=== PATIENT | female | born 1945 | race Caucasian/White ===

== ENCOUNTER 2018-11-10 09:53 | Day surgery (SDC) | payer OTHER, BC ==
--- OUTSIDE RECORDS SUMMARY | 2018-11-10 09:56 | XMS REPORT ---
:1945 [facility] Address [address] [place] [address] Dr. Allen [address] [place] [id number] Care Team Providers Name Role Phone Unavailable Unavailable Unavailable Problems This patient has no known problems. Allergies, Adverse Reactions, Alerts This patient has no known allergies or adverse reactions. Medications This patient has no known medications.
--- OUTSIDE RECORDS SUMMARY | 2018-11-10 09:56 | XMS REPORT | Continuity of Care Document ---
:1945 Author Organization [facility] Information [place] Care Team Providers Name Role Phone [facility] Unavailable Unavailable Problems Problem Status Onset Classification Date Comments Source Date Reported 20094,RIGHT KNEE Active 09/16/19 MENISCUS TEAR 14 [facility] 48099,RIGHT KNEE Active 09/16/19 MENISCUS TEAR 14 [facility] [place] 719.46 Active 09/13/19 14 [facility] OSTEOARTHRITIS Active 04/27/19 RIGHT KNEE PAIN 01 [facility] Seizure Resolved 04/27/18 Problem 11/06/2018 [facility] 80 [facility] Anemia Resolved Problem 11/06/2018 [facility] Neuro 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 [facility] Carpal tunnel Active Problem 11/06/2018 [facility] syndrome Neuro Diverticulitis Active Problem 11/06/2018 [facility] Dystonia Active Problem 11/06/2018 [facility] Neuro Fibromyalgia Active Problem 11/06/2018 [facility] Neuro GERD (Confirmed) Active Problem 11/06/2018 [facility] Neuro Hyperlipidemia Resolved Problem 11/06/2018 [facility] Neuro Knee pain Active Problem 11/06/2018 [facility] 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 Neuro Neck pain Active Problem 11/06/2018 [facility] Neuropathy Active Problem 11/06/2018 [facility] Osteoporosis Active Problem 11/06/2018 [facility] Neuro Pneumonia Resolved Problem 11/06/2018 [facility] Neuro Rhinitis Active Problem 11/06/2018 [facility] Neuro Scoliosis Active Problem 11/06/2018 [facility] Neuro 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 Neuro region JOINT PAIN-L/LEG Active [facility] OSTEOARTHRITIS OF Active KNEE, UNSPECIFIED [facility] PAIN IN RIGHT Active KNEE [facility] Medications Medication Details Route Status Patient Ordering Order Source Instructions Provider Date pregabalin 150 MG 150 mg=1 cap, Active 09/23/ [facility] Oral Capsule PO, TID, # 90 2019 Neuro [Lyrica] cap, 3 Refill(s), called to pharmacy pregabalin 150 MG 150 mg=1 cap, Inactive 09/23/ [facility] Oral Capsule PO, TID, X 30 2018 Neuro [Lyrica] day, # 90 cap, 3 Refill(s), given to patient Acetaminophen 325 1-2 tab, PO, Active MG / Hydrocodone Q4-6H, Pain, # 2014 [facility] Bitartrate 5 MG 30 tab, 0 City Oral Tablet [[place] Refill(s) 5/325] enalaprilat 0.625 mg, 0.5 Inactive mL, Route: IVP2013 [facility] Drug form: INJ, City Q5Min, Dosing Weight 50.455, kg, PRN Elevated BP, Start date: 10/11/13 13:33:00, Duration: 4 doses or times, Stop date: Limited # of timesNotes: (Same as: Vasotec-IV) Calcium Chloride 1,000 mL, Rate: Inactive 0.0014 MEQ/ML / 125 ml/hr, 2013 [facility] Potassium Chloride Infuse over: 8 City 0.004 MEQ/ML / hr, Route: IV, Sodium Chloride Dosing Weight 0.103 MEQ/ML / 50.455 kg, Sodium Lactate Total Volume: 0.028 MEQ/ML 1,000, Start Injectable date: 10/11/13 Solution 13:33:00, Duration: 30 day, Stop date: 11/10/13 13:32:00 Naloxone 0.04 mg, 0.1 Inactive mL, Route: IVP2013 [facility] Drug form: INJ, City Q2MIN, Dosing Weight 50.455, kg, PRN Narcotic Reversal, Start date: 10/11/13 13:33:00, Duration: 8 doses or times, Stop date: Limited # of timesNotes: Same as Narcan Flumazenil 0.2 mg, 2 mL, Inactive Route: IV2013 [facility] Drug form: INJ, City PRN, Dosing Weight 50.455, kg, PRN Benzodiazepine Reversal, Initial dose, Start date: 10/11/13 13:33:00, Duration: 30 day, Stop date: 11/10/13 13:32:00Notes: (Same as: Romazicon) Morphine 2 mg, 0.25 mL, Inactive Route: IVP2013 [facility] Drug form: INJ, City Q5Min, Dosing Weight 50.455, kg, PRN Pain Score 4-6, Start date: 10/11/13 13:33:00, Duration: 5 doses or times, Stop date: Limited # of timesNotes: (Same as: MORPhine Sulfate) Acetaminophen 1,000 mg, 100 Inactive mL, Route: 2013 [facility] IVPB, Drug City form: INJ, ONCE, Dosing Weight 50.455, kg, PRN Pain Score 1-3, Start date: 10/11/13 13:33:00, Duration: 1 doses or times, Stop date: Limited # of timesNotes: Infuse over 15 minutes Do not exceed 4gm/day of acetaminophen Ondansetron 4 mg, 2 mL, Inactive Route: IVP2013 [facility] Drug form: INJ, City ONCE, Dosing Weight 50.455, kg, PRN Nausea & Vomiting, Start date: 10/11/13 13:33:00Notes: (Same as: Zofran) Lidocaine 0.5 mL, Route: Inactive Hydrochloride 10 INTRADERM, 2013 [facility] MG/ML Injectable Dosing Weight City Solution 50.455, kg, ONCALL, Start date: 10/11/13 12:00:00, Duration: 1 doses or times Cefazolin 2 gm, 100 mL, Inactive Route: IVPB, 2013 [facility] Drug form: INJ, City ONCE, Dosing Weight 50.455, kg, Start date: 10/11/13 11:11:00, Stop date: 10/11/13 11:11:00Notes: Same as: [facility] Calcium Chloride 1,000 mL, Rate: Inactive 0.0014 MEQ/ML / 25 ml/hr, 2013 [facility] Potassium Chloride Infuse over: 40 City 0.004 MEQ/ML / hr, Route: IV, Sodium Chloride Dosing Weight 0.103 MEQ/ML / 50.455 kg, Sodium Lactate Total Volume: 0.028 MEQ/ML 1,000, Start Injectable date: 10/11/13 Solution 11:10:00, Duration: 30 day, Stop date: 11/10/13 11:09:00 zoledronic acid 0 Refill(s) Active 0.05 MG/ML 2013 [facility] Injectable [facility] Solution [Reclast] Trazodone 50 mg=1 tab, Active 09/23/ Hydrochloride 50 PO, Bedtime, # 2013 [facility] MG Oral Tablet 270 tab, 0 City Refill(s) tramadol 50 mg=1 tab, Active 09/23/ MH hydrochloride 50 PO, Q6H, Pain, 2013 [facility] MG Oral Tablet # 40 tab, 0 City Refill(s) Omeprazole 20 MG 20 mg=1 cap, Active Enteric Coated PO, Daily, # 30 2013 [facility] Capsule [Prilosec] cap, 0 City Refill(s) Vitamin B-12 1000 0 Refill(s) Active mcg sublingual 2013 [facility] tablet [facility] Milnacipran 0 Refill(s) Active hydrochloride 50 2013 [facility] MG Oral Tablet City [Savella] Lutein 0 Refill(s) Active 2013 [facility] Simvastatin 20 MG 20 mg=1 tab, Active Oral Tablet PO, Bedtime, # 2013 [facility] [Zocor] 90 tab, 0 City Refill(s) docosahexaenoic 0 Refill(s) Active 09/23/ acid 200 MG / 2013 [facility] Eicosapentaenoic [facility] Acid 300 MG / Vitamin E 1 [facility] Oral Capsule pregabalin 150 MG 150 mg=1 cap, Active Oral Capsule PO, Daily, # 90 2013 [facility] [Lyrica] cap, 0 City Refill(s) One-A-Day Women 50 1 tab, PO, Active 09/23/ Plus oral tablet Daily, # 30 2013 [facility] tab, 0 City Refill(s) gabapentin 600 MG 600 mg=1 tab, Active 09/23/ MH Oral Tablet PO, QID, # 90 2013 [facility] tab, 0 City Refill(s) Bactrim DS 1 tab, PO, BID, Active # 6 tab, 0 2013 [facility] Refill(s) [facility] Doxycycline 100 MG 100 mg=1 cap, Active Oral Capsule PO, Daily, # 7 2013 [facility] cap, 0 City Refill(s) Docusate Sodium 100 mg=1 cap, Active 09/23/ MH 100 MG Oral PO, BID, 2013 [facility] Capsule [Colace] Constipation, # City 20 cap, 0 Refill(s) Calcium Citrate 0 Refill(s) Active 2013 [facility] ferrous sulfate 325 mg, PO, Active 325 MG Oral Tablet Daily, # 30 2013 [facility] [Feosol] tab, 0 City Refill(s) Allergies, Adverse Reactions, Alerts Substance Category Reaction Severity Reaction Status Date Comments Source type Reported No Known Assertion Drug [facility] Medication allergy Neuro Allergies Immunizations No Data Provided for This Section Results Order Name Results Value Reference Date Interpretation Comments Source Range HEMATOLOGY Hct 39.9 36.0 - 48.0 2013 [facility] HEMATOLOGY Hgb 13.4 12.0 - 16.0 2013 [facility] Pathology Reports No Data Provided for This Section Diagnostic Reports Report Value Date Source Knee 4+ views EXAMINATION: Right knee 4+ views unilateral 07/27/2015 [facility] unilateral DX HISTORY: Right knee pain; medial compartment joint space narrowing; knee effusion FINDINGS: 4 views of the right knee are performed and compared to 2013. There are no fractures. There is minimal medial compartment joint space narrowing, unchanged. The lateral and patellofemoral compartment joint spaces are normal. There is a trace knee effusion. IMPRESSION: 1. Unchanged minimal medial compartment joint space narrowing of the right knee with a trace knee effusion. Knee 3 views Exam: Right knee x-ray, 4 views 09/12/2013 [facility] Reason for Exam: Right knee pain Comparison Exam: None Discussion: No fractures or dislocations are seen of the right knee. The joint spaces are preserved. No intraosseous lesions. No radiopaque foreign bodies. Impression: 1. No acute bony abnormalities seen within the right knee . Consultation Notes No Data Provided for This Section Discharge Summaries No Data Provided for This Section History and Physicals No Data Provided for This Section Vital Signs Vital Sign Value Date Comments Source Weight 51.818 11/03/2018 [facility] Neuro BMI Calculated 22.31 11/03/2018 [facility] Neuro Heart Rate 71 11/03/2018 [facility] Neuro Respitory Rate 16 11/03/2018 [facility] Neuro Systolic (mm Hg) 102 11/03/2018 [facility] Neuro Diastolic (mm Hg) 64 11/03/2018 [facility] Height 152.4 cm 11/03/2018 [facility] Neuro Height 154.94 cm 09/23/2018 [facility] Neuro Weight 51.818 09/23/2018 [facility] Neuro BMI Calculated 21.59 09/23/2018 [facility] Neuro Systolic (mm Hg) 115 09/23/2018 [facility] Neuro Diastolic (mm Hg) 86 09/23/2018 [facility] Neuro Heart Rate 74 09/23/2018 [facility] Neuro Respitory Rate 16 09/23/2018 [facility] Neuro Heart Rate 70 10/11/2013 [facility] Systolic (mm Hg) 129 10/11/2013 [facility] Diastolic (mm Hg) 85 10/11/2013 [facility] Respitory Rate 15 10/11/2013 [facility] Diastolic (mm Hg) 79 10/11/2013 [facility] Systolic (mm Hg) 132 10/11/2013 [facility] Respitory Rate 13 10/11/2013 [facility] Systolic (mm Hg) 133 10/11/2013 [facility] Diastolic (mm Hg) 84 10/11/2013 [facility] Respitory Rate 14 10/11/2013 [facility] Heart Rate 74 10/11/2013 [facility] Temperature Oral (F) 98.5 F 10/11/2013 [facility] Weight 50.455 09/23/2013 [facility] BMI Calculated 21.02 09/23/2013 [facility] Height 154.94 cm 09/23/2013 [facility] Encounters Location Location Encounter Encounter Reason Attending ADM DC Status Source Details Type Number For Provider Date Date Visit [facility] [id number] [place] 09/12 09/13 [facility] /2013 [facility] OBS Day [id number] Dillon 10/11 10/11 [facility] Surgery [facility] /2013 [facility] Outpatient [id number] Dillon 07/26 07/27 [facility] /2015 [facility] [id number] LATANYA 07/[address] [facility] Out[facility] [id number] Latanya 07/27 [facility] Outpatient [id number] Latanya 09/23 [facility] Outpatient [id number] Latanya 09/23 09/24 [facility] Neurology [facility] /2018 [facility] [id number] Latanya 11/03 [facility] [facility] Outpatient [id number] Latanya 11/03 11/04 [facility] Neurology [facility] [place] [facility] [id number] Latanya 01/26 [facility] [place] Outpatient [id number] Latanya 02/02 [facility] [place] Procedures Procedure Code Date Perfomer Comments Source Cervical spinal [id number] 04/27/2008 [facility] Neuro fusion Cervical spinal [id number] 04/27/2008 [facility] Partial resection [id number] 04/27/2005 [facility] Neuro of colon Partial resection [id number] 04/27/2005 [facility] Adrenal gland [id number] 04/27/2004 [facility] Neuro operation Adrenal gland [id number] 04/27/2004 [facility] Hysterectomy [id number] 04/27/1978 [facility] Neuro Hysterectomy [id number] 04/27/1978 [facility] Appendectomy [id number] 04/27/1955 [facility] Neuro Appendectomy [id number] 04/27/1955 [facility] Colonoscopy [id number] [facility] Assessment and Plan No Data Provided for This Section Plan of Care No Data Provided for This Section Social History Social History Date Source Social History TypeResponse 07/14/2018 [facility] Neuro Employment/School 1, 2 Alcohol Current, Frequency: 1-2 times per month. Smoking Status Unknown if ever smoked; Exposure to Tobacco Smoke None; Cigarette Smoking Last 365 Days No; Reg Smoking Cessation Counseling No entered on: 11/03/18 1[employer] Son- Pedro Chavez2Can release medical information to Marcos Chavez- Son, Yarelis Araujo-Daughter, DR. Pillai- PCP and Dr. Cheney- other Neurologist Social History TypeResponse 09/23/2013 [facility] Alcohol Current, Frequency: 1-2 times per month. Smoking Status Unknown if ever smoked; Exposure to Tobacco Smoke None; Cigarette Smoking Last 365 Days No; Reg Smoking Cessation Counseling No Family History No Data Provided for This Section Advance Directives No Data Provided for This Section Functional Status No Data Provided for This Section
[2018-11-10] MEDS ORDERED: Zoledronic Acid/Mannitol/Water 5 MG/100 ML INFUS.BOT IV ONE (10:30)
== END 2018-11-10 11:15 | disposition home or self-care (01) ==
LOC: DS 09:53
PROVIDERS: ATTEND Internal Medicine
DX: M81.0 Age-related osteoporosis without current pathological fracture (principal); R13.10 Dysphagia, unspecified; E86.0 Dehydration
CPT/HCPCS: 96365; J3489

== ENCOUNTER 2019-11-14 10:54 | Day surgery (SDC) | payer OTHER, BC ==
[2019-11-14] MEDS ORDERED: Zoledronic Acid/Mannitol/Water 5 MG/100 ML INFUS.BOT IV ONE (11:00)
[2019-11-14 13:43] VITALS: BP 120/74; TEMP 97.8; O2SAT 97
[2019-11-14 13:44] VITALS: BMI 22.4
--- OUTSIDE RECORDS SUMMARY | 2019-11-14 15:51 | XMS REPORT | Continuity of Care Document ---
:1945 Author Organization [facility] Information [place] Care Team Providers Name Role Phone [facility] [place] Unavailable Un available Problems Problem Status Onset Classification Date Comments Sourc e Date Reported [id number],RIGHT KNEE Active 09/16/19 MENISCUS TEAR 14 [facility] 76696,RIGHT KNEE Active 09/16/19 M[facility]ISCUS [facility]AR [facility]NEE [facility] Active 09/13/19 MH 14 [facility] OSTEOARTHRITIS Active 04/27/19 RIGHT KNEE PAIN 01 [facility]finding[facility] Resolved 04/27/18 Problem 11/14/2019 M ischer 80 Neuro,[facility] Anemia (disorder) Resolved Problem 11/14/2019 M isch Neuro 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 Neuro, MH (disorder) [facility] Carpal tunnel Active Problem 11/14/2019 Misch er syndrome (disorder) Neuro Diverticulitis Active Problem 11/14/2019 Misc her (disorder) Neuro,[facility] Dystonia (disorder) Active Problem 11/14/2019 [facility] Fibromyalgia Active Problem 11/14/2019 Mische r (disorder) Neuro Gastroesophageal Active Problem 11/14/2019 Mi susan reflux disease Neuro (disorder) Hyperlipidemia Resolved Problem 11/14/2019 Misc her (disorder) Neuro Knee pain (finding) Active Problem 11/14/2019 [facility] 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 N euro (disorder) Neck pain (finding) Active Problem 11/14/2019 [facility] Neuropathy Active Problem 11/14/2019 [facility] (disorder) Neuro,[facility] Osteoporosis Active Problem 11/14/2019 Mische r (disorder) Neuro Pneumonia Resolved Problem 11/14/2019 [facility] (disorder) Neuro Rhinitis (disorder) Active Problem 11/14/2019 [facility] Scoliosis deformity Active Problem 11/14/2019 [facility] of spine (disorder) Neuro Spinal stenosis in Active Problem 11/14/2019 [facility] cervical region Neur o (disorder) JOINT PAIN-L/LEG Active [facility] OSTEOARTHRITIS OF Active KNEE, UNSPECIFIED [facility] PAIN IN RIGHT KNEE Active M H [facility] Medications Medication Details Route Status Patient Ordering Order Source Instructions Provider Date baclofen 10 mg 10 mg = 1 tab, Active 11/10/ Mi susan oral tablet PO, BID, # 180 2020 Neuro tab, 1 Refill(s), Pharmacy: [facility], 152.4, cm, 07/13/19 10:33:00 CDT, Height, 50.909, kg, 07/13/19 10:33:00 CDT, Weight baclofen 10 mg 10 mg = 1 tab, Inactive 11/10/ M ischer oral tablet PO, BID, X 30 2020 Neuro day, # 60 tab, 3 Refill(s), Pharmacy: [facility], 152.4, cm, 07/13/19 10:33:00 CDT, Height, 50.909, kg, 07/13/19 10:33:00 CDT, Weight Milnacipran 50 mg = 1 tab, Active 11/10/ Misch er hydrochloride 50 PO, BID, # 180 2020 Neuro MG Oral Tablet tab, 1 [Savella] Refill(s), Pharmacy: [facility], 152.4, cm, 07/13/19 10:33:00 CDT, Height, 50.909, kg, 07/13/19 10:33:00 CDT, Weight pregabalin 150 MG 150 mg = 1 cap, Active 11/10/ [facility] Oral Capsule PO, TID, # 270 2020 Neur o [Lyrica] cap, 1 Refill(s), [place], [facility]acy: [facility], 152.4, cm, 07/13/19 10:33:00 CDT, Height, 50.909, kg, 07/13/19 10:33:00 CDT, Weight pregabalin 150 MG 150 mg = 1 cap, Active 07/12/ [facility] Oral Capsule PO, TID, # 270 2020 Neur o [Lyrica] cap, 1 Refill(s), [place], Pharmacy: [facility] baclofen 10 mg 10 mg = 1 tab, Active Mi susan oral tablet PO, BID, # 60 2020 Neuro tab, 3 Refill(s), Pharmacy: [facility] pregabalin 150 MG 150 mg = 1 cap, Active 04/13/ [facility] Oral Capsule PO, TID, # 270 2019 Neur o [Lyrica] cap, 0 Refill(s), [facility] Milnacipran 50 mg = 1 tab, Active 04/13/ Misch er hydrochloride 50 PO, BID, # 180 2019 Neuro MG Oral Tablet tab, 1 [Savella] Refill(s) pregabalin 150 MG 150 mg = 1 cap, Active 01/17/ [facility] Oral Capsule PO, TID, # 270 2019 Neur o [Lyrica] cap, 0 Refill(s), [facility] pregabalin 150 MG 150 mg = 1 cap, Inactive 01/17 / [facility] Oral Capsule PO, TID, X 30 2019 Neuro [Lyrica] day, # 90 cap, 0 Refill(s), [facility] Milnacipran 50 mg = 1 tab, Active 01/17/ Misch er hydrochloride 50 PO, BID, # 180 2019 Neuro MG Oral Tablet tab, 1 [Savella] Refill(s), Pharmacy: [facility] pregabalin 150 MG 150 mg = 1 cap, Inactive 01/17 / [facility] Oral Capsule PO, TID, # 90 2019 Neuro [Lyrica] cap, 0 Refill(s), given to patient pregabalin 150 MG 150 mg = 1 cap, Inactive 01/17 / [facility] Oral Capsule PO, TID, # 270 2019 Neur o [Lyrica] cap, 3 Refill(s), given to patient pregabalin 150 MG 150 mg = 1 cap, Inactive 01/17 / [facility] Oral Capsule PO, TID, X 30 2019 Neuro [Lyrica] day, # 90 cap, 0 Refill(s), given to patient pregabalin 150 MG 150 mg = 1 cap, Active 09/23/ [facility] Oral Capsule PO, TID, # 90 2019 Neuro [Lyrica] cap, 3 Refill(s), called to pharmacy pregabalin 150 MG 150 mg = 1 cap, Inactive 09/23 / [facility] Oral Capsule PO, TID, X 30 2019 Neuro [Lyrica] day, # 90 cap, 3 Refill(s), given to patient Acetaminophen 325 1-2 tab, PO, Active 06/ M H MG / Hydrocodone Q4-6H, Pain, # 2014 [facility] Bitartrate 5 MG 30 tab, 0 City Oral Tablet [[place] Refill(s) 5/325] enalaprilat Notes: (Same Inactive as: Vasotec-IV) 2013 [facility] Calcium Chloride 1,000 mL, Rate: Inactive 0.0014 MEQ/ML / 125 ml/hr, 2014 [facility] Potassium Chloride Infuse over: 8 City 0.004 MEQ/ML / hr, Route: IV, Sodium Chloride Dosing Weight 0.103 MEQ/ML / 50.455 kg, Sodium Lactate Total Volume: 0.028 MEQ/ML 1,000, Start Injectable date: 10/11/13 Solution 13:33:00, Duration: 30 day, Stop date: 11/10/13 13:32:00 Naloxone Notes: Same as Inactive Narcan 2013 [facility] Flumazenil Notes: (Same Inactive as: Romazicon) 2013 [facility] Morphine Notes: (Same Inactive as: MORPhine 2014 [facility] Sulfate) [facility] Acetaminophen Notes: Infuse Inactive over 15 minutes 2014 [facility] Do not exceed City 4gm/day of acetaminophen Ondansetron Notes: (Same Inactive as: Zofran) 2013 [facility] Lidocaine 0.5 mL, Route: Inactive Hydrochloride 10 INTRADERM, 2014 [facility] rial MG/ML Injectable Dosing Weight C ity Solution 50.455, kg, ONCALL, Start date: 10/11/13 12:00:00, Duration: 1 doses or times Cefazolin Notes: Same as: Inactive Ancef 2013 [facility] Calcium Chloride 1,000 mL, Rate: Inactive 0.0014 MEQ/ML / 25 ml/hr, 2014 [facility] Potassium Chloride Infuse over: 40 City 0.004 MEQ/ML / hr, Route: IV, Sodium Chloride Dosing Weight 0.103 MEQ/ML / 50.455 kg, Sodium Lactate Total Volume: 0.028 MEQ/ML 1,000, Start Injectable date: 10/11/13 Solution 11:10:00, Duration: 30 day, Stop date: 11/10/13 11:09:00 zoledronic acid 0 Refill(s) Active 05/30/ MH 0.05 MG/ML 2013 [facility] Injectable City Solution [Reclast] Trazodone 50 mg = 1 tab, Active Hydrochloride 50 PO, Bedtime, # 2013 [facility] MG Oral Tablet 270 tab, 0 City Refill(s) tramadol 50 mg = 1 tab, Active hydrochloride 50 PO, Q6H, Pain, 2013 [facility] MG Oral Tablet # 40 tab, 0 City Refill(s) Omeprazole 20 MG 20 mg = 1 cap, Active Enteric Coated PO, Daily, # 30 2013 [facility] Capsule [Prilosec] cap, 0 City Refill(s) Vitamin B-12 1000 0 Refill(s) Active mcg sublingual 2013 [facility] tablet [facility] Milnacipran 0 Refill(s) Active hydrochloride 50 2013 [facility] MG Oral Tablet City [Savella] Lutein 0 Refill(s) Active 2013 [facility] Simvastatin 20 MG 20 mg = 1 tab, Active Oral Tablet PO, Bedtime, # 2014 [facility] [Zocor] 90 tab, 0 City Refill(s) docosahexaenoic 0 Refill(s) Active acid 200 MG / 2013 [facility] Eicosapentaenoic City Acid 300 MG / Vitamin E 1 UNT Oral Capsule pregabalin 150 MG 150 mg = 1 cap, Active Oral Capsule PO, Daily, # 90 2013 [facility] [Lyrica] cap, 0 City Refill(s) One-A-Day Women 50 1 tab, PO, Active Plus oral tablet Daily, # 30 2013 Mem orial tab, 0 City Refill(s) gabapentin 600 MG 600 mg = 1 tab, Active Oral Tablet PO, QID, # 90 2013 [facility] al tab, 0 City Refill(s) Bactrim DS 1 tab, PO, BID, Active # 6 tab, 0 2013 [facility] Refill(s) [facility] Doxycycline 100 MG 100 mg = 1 cap, Active 09/23 Oral Capsule PO, Daily, # 7 2013 [facility] rial cap, 0 City Refill(s) Docusate Sodium 100 mg = 1 cap, Active MH 100 MG Oral PO, BID, 2013 [facility] Capsule [Colace] Constipation, # City 20 cap, 0 Refill(s) Calcium Citrate 0 Refill(s) Active 2013 [facility] ferrous sulfate 325 mg, PO, Active 325 MG Oral Tablet Daily, # 30 2013 [facility] [Feosol] tab, 0 City Refill(s) Allergies, Adverse Reactions, Alerts Substance Category Reaction Severity Reaction Status Date Comments S ource type Reported No Known Assertion Drug Misch er Medication allergy Neuro Allergies Immunizations No Data Provided for This Section Results Order Name Results Value Reference Date Interpretation Comments Theresa rce Range HEMATOLOGY Hct 39.9 36.0 - 48.0 2013 [facility] HEMATOLOGY Hgb 13.4 12.0 - 16.0 2013 [facility] Pathology Reports No Data Provided for This Section Diagnostic Reports Report Value Date Source Knee 4+ views EXAMINATION: Right knee 4+ views unilateral 04/2015 [facility] unilateral DX HISTORY: Right knee pain; me dial compartment joint space narrowing; knee effusion FINDINGS: 4 views of the right knee are performe d and compared to 09/12/2013. There are no fractures. Ther e is minimal medial compartment joint space narrowing, unchanged. The lateral and patellofemoral compartment joint spaces are normal. There is a trace knee effusion. IMPRESSION: 1. Unchanged minimal medial compartment joint space narrowing of the right knee with a trace knee effusion. Knee 3 views Exam: Right knee x-ray, 4 views 09/12/2013 [facility] Reason for Exam: Right knee pain Comparison [...] Signs Vital Sign Value Date Comments Source Systolic (mm Hg) 126 07/13/2019 [facility] Love ro Diastolic (mm Hg) 83 07/13/2019 [facility] Ne uro Heart Rate 68 07/13/2019 [facility] Neuro Respitory Rate 16 07/13/2019 [facility] Neuro Height 152.4 cm 07/13/2019 [facility] Neuro Weight 50.909 07/13/2019 [facility] BMI Calculated 21.92 07/13/2019 [facility] Systolic (mm Hg) 116 04/13/2019 [facility] Love ro Diastolic (mm Hg) 75 04/13/2019 [facility] Ne uro Heart Rate 66 04/13/2019 [facility] Respitory Rate 16 04/13/2019 [facility] Height 152.4 cm 04/13/2019 [facility] Weight 51.364 04/13/2019 [facility] BMI Calculated 22.12 04/13/2019 [facility] Systolic (mm Hg) 108 01/17/2019 [facility] Love ro Diastolic (mm Hg) 78 01/17/2019 [facility] Ne uro Heart Rate 70 [facility] 16 01/17/2019 [facility] Height 154.94 cm 01/17/2019 [facility] Weight 51.364 01/17/2019 [facility] BMI Calculated 21.4 01/17/2019 [facility] Weight 51.818 11/03/2018 [facility] BMI Calculated 22.31 11/03/2018 [facility] Heart Rate 71 11/03/2018 [facility] Respitory Rate 16 11/03/2018 [facility] Systolic (mm Hg) 102 11/03/2018 [facility] Love ro Diastolic (mm Hg) 64 11/03/2018 [facility] Ne uro Height 152.4 cm 11/03/2018 [facility] Height 154.94 cm 09/23/2018 [facility] Weight 51.818 09/23/2018 [facility] BMI Calculated 21.59 09/23/2018 [facility] Systolic (mm Hg) 115 09/23/2018 [facility] [place] Diastolic (mm Hg) 86 09/23/2018 [facility] Ne uro Heart Rate 74 09/23/2018 [facility] Neuro Respitory Rate 16 09/23/2018 [facility] Heart Rate 70 10/11/2013 [facility] Cit y Systolic (mm Hg) 129 10/11/2013 [facility] City Diastolic (mm Hg) 85 10/11/2013 [facility] City Respitory Rate 15 10/11/2013 [facility] C ity Diastolic (mm Hg) 79 10/11/2013 [facility] l [facility] Systolic (mm Hg) 132 10/11/2013 [facility] City Respitory Rate 13 10/11/2013 [facility] C ity Systolic (mm Hg) 133 10/11/2013 [facility] Diastolic (mm Hg) 84 10/11/2013 [facility] [place] [facility] [place] Respitory Rate 14 10/11/2013 Diana parra Heart Rate 74 10/11/2013 [facility] Cit y Temperature Oral (F) 98.5 F 10/11/2013 [facility] [place] Weight 50.455 09/23/2013 [facility] Cit y BMI Calculated 21.02 09/23/2013 Diana parra Height 154.94 cm 09/23/2013 [facility] Cit y Encounters Location Location Encounter Encounter Reason Attending ADM DC Stat us Source Details Type Number For Provider Date Date Visit [facility] [id number] [facility]2013 [facility] OBS Day [id number] Dillon 10/11 10/11 [facility] [id number] Dillon 07/26 07/27 [facility] /2015 [facility] Outpatient [id number] LATANYA 07/14 [facility] [place] Outpatient [id number] Latanya 07/27 [facility] [place] Outpatient [id number] Latanya 09/23 [facility] [place] MNA Outpatient [id number] Latanya 09/23 09/24 [facility] Neurology [facility] Neuro [place] Outpatient [id number] Latanya 11/03 [facility] [place] MNA Outpatient [id number] Latanya 11/03 11/04 [facility] Neurology Kre Neuro [place] Outpatient [id number] Latanya 01/05 [facility] [place] MNA Ambulatory [id number] Latanya 01/05 01[facility]05 [facility] [place] Out[facility] [id number] Latanya 01/12 [facility] [place] MNA Ambulatory [id number] Latanya 01/12 01/12 [facility] Neurology Pre-Reg Kre Neuro [place] Outpatient [id number] Latanya 01/17 [facility] [place] MNA Outpatient [id number] Latanya 01/17 01/18 [facility] [place] [facility] [id number] Latanya 01/20 [facility] [place] [facility] [id number] Latanya 01/20 01/20 [facility] Pre[facility] [place] Neuro [place] Outpatient [id number] Latanya 01/26 [facility] [place] [facility] Ambulatory [id number] Latanya 01/26 01/26 [facility] Pre[facility] [place] Neuro [place] Outpatient [id number] Latanya 02/02 [facility] [place] MNA Ambulatory [id number] Latanya 02/02 02/02 [facility] [place] Neuro [place] Outpatient [id number] Latanya 04/13 Active [facility] [place] MNA Outpatient [id number] Latanya 04/13 04/14 [facility] Neuro [place] Outpatient [id number] Latanya 07/12 Active [facility] Kre [place] MNA Outpatient [id number] Latanya 07/12 07/13 [facility] Neuro [place] Outpatient [id number] Latanya 11/10 Active [facility] Kre [place] Outpatient [id number] Latanya 11/10 Active [facility] Kre [place] MNA Ambulatory [id number] Latanya 11/10 11/10 [facility] Neuro [place] MNA Outpatient [id number] Latanya 11/10 11/11 [facility] [place] /2019 Neuro [place] Outpatient [id number] Latanya 03/14 Active [facility] [place] Procedures Procedure Code Date Perfomer Comments Source Cervical spinal [id number] 04/27/2008 [facility] fusion Neuro,[facility] Partial resection [id number] 04/27/2005 [facility] of colon Neuro,[facility] Adrenal gland [id number] 04/27/2004 [facility] operation Neuro,[facility] Hysterectomy [id number] 04/27/1978 [facility] Neuro,[facility] Appendectomy [id number] 04/27/1955 [facility] Neuro,[facility] Colonoscopy [id number] [facility] Neuro Assessment and Plan No Data Provided for This Section Plan of Care No Data Provided for This Section Social History Social History Date Source Social History TypeResponse 09/23/2013 [facility] Alcohol Current, Frequency: 1-2 times per month. 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 Pillai- PCP and Dr. Cheney- other Neurologist Social History TypeResponse 09/23/2013 [facility] Alcohol Current, Frequency: 1-2 times per month. 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
--- OUTSIDE RECORDS SUMMARY | 2019-11-14 15:51 | XMS REPORT | Summary of Care ---
:1945 Author Organization [facility] Neurology [place] Address [address] [place] [address]- Encounter HQ Connerr_gaviota(FIN) [id number] Date(s): 11/11/19 - 11/11/19 [facility] [address] [place] [address]- [phone] Discharge Disposition: Home or Self Care Attending Physician: Jung Ritchie MD Referring Physician: Jung Ritchie MD Vital Signs No data available for this section Problem List Condition Effective Dates Status Health Status Informant Anemia(Confirmed) Resolved Benign tumor of adrenal Resolved gland(Confirmed) Carpal tunnel syndrome(Confirmed) Active Diverticulitis(Confirmed) Active Dystonia(Confirmed) Active Fibromyalgia(Confirmed) Active GERD (gastroesophageal reflux Active disease)(Confirmed) Hyperlipidemia(Confirmed) Resolved Knee pain(Confirmed) Active Cerebellar atrophy(Confirmed) Active Neck pain(Confirmed) Active Neuropathy(Confirmed) Active Osteoporosis(Confirmed) Active Pneumonia(Confirmed) Resolved Rhinitis(Confirmed) Active Scoliosis(Confirmed) Active Seizure(Confirmed) < 1980 Resolved Stenosis of cervical spine Active region(Confirmed) Allergies, Adverse Reactions, Alerts No Known Medication Allergies Medications baclofen 10 mg oral tablet 10 mg = 1 tab, PO, BID, X 30 day, # 60 tab, 3 Refill(s), Pharmacy: [facility], 152.4, cm,07/13/19 10:33:00 CDT, Height, 50.909, kg, 07/13/19 10:33:00 CDT, Weight Start Date: 11/11/19 Stop Date: 11/11/19 Status: Completedbaclofen 10 mg oral tablet 10 mg = 1 tab, PO, BID, # 180 tab, 1 Refill(s), Pharmacy: [facility], 152.4, cm, 07/12/2009:33:00 CDT, Height, 50.909, kg, 07/13/19 10:33:00 CDT, Weight Start Date: 11/11/19 Stop Date: 05/09/20 Status: OrderedLyrica 150 mg oral capsule 150 mg = 1 cap, PO, TID, # 270 cap, 1 Refill(s), [place], Pharmacy: [facility], 152.4, cm, 07/13/19 10:33:00 CDT, Height, 50.909, kg, 07/13/19 10:33:00 CDT, Weight Start Date: 11/11/19 Stop Date: 05/09/20 Status: OrderedSavella 50 mg oral tablet 50 mg = 1 tab, PO, BID, # 180 tab, 1 Refill(s), [facility]acy: [facility], 152.4, cm, 07/13/19 10:33:00 CDT, Height, 50.909, kg, 07/13/19 10:33:00 CDT, Weight Start Date: 11/11/19 Stop Date: 05/09/20 Status: Ordered Results No data available for this section Immunizations No data available for this section Procedures Procedure Date Related Diagnosis Body Site Status Cervical spinal fusion 2008 Compl eted Partial resection of colon 2005 C ompleted Adrenal gland operation 2004 Comp leted Hysterectomy 1978 Completed Appendectomy 1955 Completed Colonoscopy Completed Social History Social History Type Response Alcohol Current, Frequency: 1-2 time s per month. Employment/School 1, 2 Smoking Status Unknown if ever smoked; Expo sure to Tobacco Smoke None; Cigarette Smoking Last 365 Days No; Reg Smoking Cessation Counseling No entered on: 11/11/19 1Power of Paper Handler Jamie Chavez2Can release medical information to Marcos Chavez- Son, Yarelis Araujo-Daughter, DR. Pillai- PCP & Dr. Cheney- other Neurologist Assessment and Plan No data available for this section
--- OUTSIDE RECORDS SUMMARY | 2019-11-14 15:51 | XMS REPORT | Summary of Care ---
:1945 Author Organization [facility] Neurology [place] Address [address] [place] [address]- Encounter HQ Connerr_gaviota(FIN) [id number] Date(s): 11/11/19 - 11/11/19 [facility] [address] [place] [address]- [phone] Attending Physician: Jung Ritchie MD Referring Physician: [...] Reactions, Alerts No Known Medication Allergies Medications No data available for this section Results No data available for this section [...] Counseling No entered on: 11/11/19 1Power of Advisory Intern Son- Pedro Chavez2Can release medical information to Marcosstephanie Chavez- Son, Yarelis Araujo-Daughter, DR. Pillai- PCP & Dr. Cheney- other Neurologist Assessment and Plan No data available for this section
--- OUTSIDE RECORDS SUMMARY | 2019-11-14 15:52 | XMS REPORT | Continuity of Care Document ---
:1945 Author Organization [facility] t Address [address] [place] [address] Care Team Providers Name Role Phone Troy Ritchie Attending Clinician Janie Rose Attending Clinician Janie Rose Admitting Clinician Problems Condition Condition Condition Status Onset Resolution Last Treating Co mments Source Name Details Category Date Date Treatment Clinician Date [id number],RIG Diagnosis Active 2013-09-23 Memoria T KNEE - 10:33:00 l MENISCUS 00:00: Talmo TEAR [id number],RIGH 00 T KNEE MENISCUS TEAR Active 09/15/2013 [facility] [id number],RIGH Diagnosis Active 2013-10-11 Memoria T KNEE - 07:31:00 l MENISCUS 00:00: Talmo TEAR KNEE [id number],RIGH 00 ARTH T KNEE MENISCUS TEAR KNEE ARTH Active 09/15/2013 [facility] 719.46 Diagnosis Active 2013-09-13 Mem oria - 13:19:00 l 719.46 00:00: Manpreet 00 Active 09/12/2013 [facility] OSTEOARTHR Diagnosis Active 2015-07-27 Memoria ITIS RIGHT - 11:27:00 l KNEE PAIN 00:00: Manpreet OSTEOARTHR 00 ITIS RIGHT KNEE PAIN Active 04/27/2000 [facility] Anemia Problem Resolve 2019-11-14 Tanmay kerrie (disorder) d 00:04:05 l Anemia Talmo (disorder) Resolved Problem 11/14/2019 [facility] 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) [facility] Hyperlipid Problem Resolve 2019-11-14 Memoria emia d 00:04:05 l (disorder) Gavino n Hyperlipid emia (disorder) Resolved Problem 11/14/2019 [facility] Pneumonia Problem Resolve 2019-11-14 M emoria (disorder) d 00:04:05 l Manpreet Pneumonia (disorder) Res[facility] Carpal Problem Active 2019-11-14 Memor ia tunnel 00:04:05 l syndrome Carpal Gavino n (disorder) tunnel syndrome (disorder) Active Problem [facility]/14/2019 [facility] Diverticul Problem Active 2019-11-14 M emoria itis 00:04:05 l (disorder) Gavino n Diverticul itis (disorder) Active Problem 11/14/2019 [facility] Dystonia Problem Active 2019-11-14 Mem oria (disorder) 00:04:05 l Dystonia Gavino n (disorder) Active Problem 11/14/2019 [facility] Fibromyalg Problem Active 2019-11-14 M emoria ia 00:04:05 l (disorder) Gavino n Fibromyalg ia (disorder) Active Problem 11/14/2019 [facility] Gastroesop Problem Active 2019-11-14 M emoria hageal 00:04:05 l reflux Manpreet disease Gastroesop (disorder) hageal reflux disease (disorder) Active Problem 11/14/2019 [facility] Knee pain Problem Active 2019-11-14 Me moria (finding) 00:04:05 l Knee Talmo pain (finding) Active Problem 11/14/2019 [facility] 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) Active Problem 11/14/2019 [facility] Neck pain Problem Active 2019-11-14 Me moria (finding) 00:04:05 l Neck Talmo pain (finding) Active Problem 11/14/2019 [facility] Neuropathy Problem Active 2019-11-14 M emoria (disorder) 00:04:05 l Talmo Neuropathy (disorder) Active Problem 11/14/2019 [facility] Osteoporos Problem Active 2019-11-14 M emoria is 00:04:05 l (disorder) Gavino n Osteoporos is (disorder) Active Problem 11/14/2019 [facility] Rhinitis Problem Active 2019-11-14 Mem oria (disorder) 00:04:05 l Rhinitis Gavino n (disorder) Active Problem 11/14/2019 [facility] Scoliosis Problem Active 2019-11-14 Me moria deformity 00:04:05 l of spine Manpreet (disorder) Scoliosis deformity of spine (disorder) Active Problem 11/14/2019 [facility] Spinal Problem Active 2019-11-14 Memor ia stenosis 00:04:05 l in Spinal Manpreet cervical stenosis region in (disorder) cervical region (disorder) Active Problem 11/14/2019 [facility] JOINT Diagnosis Active 2013-09-13 Mem oria PAIN-L/LEG 13:19:00 l JOINT Talmo PAIN-L/LEG Active [facility] OSTEOARTHR Diagnosis Active 2015-07-27 Memoria ITIS OF 11:27:00 l KNEE, Talmo UNSPECIFIE OSTEOARTHR D ITIS OF KNEE, UNSPECIFIE D Active [facility] PAIN IN Diagnosis Active 2015-07-27 Me moria RIGHT KNEE 11:27:00 l PAIN IN Talmo RIGHT KNEE Active [facility] History of Past Illness Condition Condition Condition Status Onset Resolution Last Treating Co mments Source Name Details Category Date Date Treatment Clinician Date Seizure Problem Resolve 1979-2019-11-14 2019-11-14 Memoria (finding) d - 00:04:05 00:04:05 l Seizure 00:00: Talmo (finding) 00 Resolved 04/27/1979 Problem 11/14/2019 [facility] Allergies, Adverse Reactions, Alerts Allergy Allergy Status Severity Reaction(s) Onset Inactive Treating Comm ents Source Name Type Date Date Clinician No Known No Known Active Memori a Medicati Medicati l on on Talmo Allergie Allergie s s Social History Social Habit Start Date Stop Date Quantity Comments Source Social History 2013-09-23 2013-09-23 [facility] karmen 15:57:59 15:57:59 Medications Ordered Filled Start Stop Current Ordering Indication Dosage Frequency Signature Comments Components Source Medication Medication Date Date Medication? Clinician (SIG) Name Name baclofen 10 Yes 10 mg = 1 M emoria mg oral 7-17 tab, PO, l tablet 23:32: BID, # 180 Ana nn 00 tab, 1 Refill(s), Pharmacy: [id number], 152.4, cm, 07/13/19 10:33:00 CDT, Height, 50.909, kg, 07/13/19 10:33:00 CDT, Weight baclofen 10 2019-0 No 10 mg = 1 M emoria mg oral 7-17 tab, PO, l tablet 16:58: BID, X 30 Gavino n 00 day, # 60 tab, 3 Refill(s), Pharmacy: [facility], 152.4, cm, 07/13/19 10:33:00 CDT, Height, 50.909, kg, 07/13/19 10:33:00 CDT, Weight Milnacipran 2020-0 Yes 50 mg = 1 M emoria hydrochlori 7-17 tab, PO, l de 50 MG 16:58: BID, # 180 Her willams Oral Tablet 00 tab, 1 [Savella] Refill(s), Pharmacy: [facility], 152.4, cm, 07/13/19 10:33:00 CDT, Height, 50.909, kg, 07/13/19 10:33:00 CDT, Weight pregabalin 2020-0 Yes 150 mg = 1 M emoria 150 MG Oral 7-17 cap, PO, l Capsule 16:58: TID, # 270 Herm aleksander [Lyrica] 00 cap, 1 Refill(s), EARL, Pharmacy: [facility], 152.4, cm, 07/13/19 10:33:00 CDT, Height, 50.909, kg, 07/13/19 10:33:00 CDT, Weight pregabalin 2020-0 Yes 150 mg = 1 M emoria 150 MG Oral 3-18 cap, PO, l Capsule 15:53: TID, # 270 Herm aleksander [Lyrica] 00 cap, 1 Refill(s), EAR[place], Pharmacy: [facility] baclofen 10 2020-0 Yes 10 mg = 1 M emoria mg oral 3-18 tab, PO, l tablet 15:53: BID, # 60 Gavino n 00 tab, 3 Refill(s), Pharmacy: [facility] pregabalin 2018-1 Yes 150 mg = 1 M emoria 150 MG Oral 2-18 cap, PO, l Capsule 16:09: TID, # 270 Herm aleksander [Lyrica] 33 cap, 0 Refill(s), [facility] Milnacipran 2019- Yes 50 mg = 1 M emoria hydrochlori 2-18 tab, PO, l de 50 MG 16:09: BID, # 180 Her willams Oral Tablet 29 tab, 1 [Savella] Refill(s) pregabalin 2019- Yes 150 mg = 1 M emoria 150 MG Oral 9-23 cap, PO, l Capsule 14:05: TID, # 270 Herm aleksander [Lyrica] 47 cap, 0 Refill(s), [facility] pregabalin 2018- No 150 mg = 1 M emoria 150 MG Oral 9-23 cap, PO, l Capsule 13:59: TID, X 30 Ana nn [Lyrica] 59 day, # 90 cap, 0 Refill(s), [facility] Milnacipran 2019- Yes 50 mg = 1 M emoria hydrochlori 9-23 tab, PO, l de 50 MG 13:59: BID, # 180 Her willams Oral Tablet 00 tab, 1 [Savella] Refill(s), Pharmacy: [facility] pregabalin 2019- No 150 mg = 1 M emoria 150 MG Oral 9-23 cap, PO, l Capsule 13:58: TID, # 90 Ana nn [Lyrica] 16 cap, 0 Refill(s), given to patient pregabalin 2019- No 150 mg = 1 M emoria 150 MG Oral 9-23 cap, PO, l Capsule 13:57: TID, # 270 Herm aleksander [Lyrica] 46 cap, 3 Refill(s), given to patient pregabalin 2019-0 No 150 mg = 1 M emoria 150 MG Oral 9-23 cap, PO, l Capsule 13:56: TID, X 30 Ana nn [Lyrica] 21 day, # 90 cap, 0 Refill(s), given to patient pregabalin 2019-0 Yes 150 mg = 1 M emoria 150 MG Oral 5-30 cap, PO, l Capsule 22:15: TID, # 90 Ana nn [Lyrica] 16 cap, 3 Refill(s), called to pharmacy pregabalin 2019-0 No 150 mg = 1 M emoria 150 MG Oral 5-30 cap, PO, l Capsule 21:41: TID, X 30 Ana nn [Lyrica] 00 day, # 90 cap, 3 Refill(s), given to patient Acetaminoph Yes 1-2 tab, Me moria en 325 MG / 6-17 PO, Q4-6H, l Hydrocodone 18:37: Pain, # 30 Talmo Bitartrate 00 tab, 0 5 MG Oral Refill(s) Tablet [[place]oshen 5/325] enalaprilat No Notes: Tanmay kerrie 6-17 (Same as: l 18:33: Vasotec-IV Talmo ) Calcium No 1,000 mL, Memor ia Chloride - Rate: 125 l 0.0014 18:33: ml/hr, Manpreet MEQ/ML / 00 Infuse Potassium over: 8 Chloride hr, Route: 0.004 IV, Dosing MEQ/ML / Weight Sodium 50.455 kg, Chloride Total 0.103 Volume: MEQ/ML / 1,000, Sodium Start Lactate date: 0.028 10/11/13 MEQ/ML 13:33:00, Injectable Duration: Solution 30 day, Stop date: 11/10/13 13:32:00 Naloxone No Notes: Memoria 6-17 Same as l 18:33: Narcan Talmo Flumazenil No Notes: Memor ia 6-17 (Same as: l 18:33: Romazicon) Morphine No Notes: Memoria 6-17 (Same as: l 18:33: MORPhine Manpreet Sulfate) Acetaminoph No Notes: Tanmay kerrei en -17 Infuse l 18:33: over 15 Talmo 00 minutes Do not exceed 4gm/day of acetaminop hen Ondansetron No Notes: Tanmay kerrie 6-17 (Same as: l 18:33: Zofran) Manpreet Lidocaine No 0.5 mL, Memor ia Hydrochlori 10-11 Route: l de 10 MG/ML 17:00: INTRADERM, Manpreet Injectable 00 Dosing Solution Weight 50.455, kg, ONCALL, Start date: 10/11/13 12:00:00, Duration: 1 doses or times Cefazolin Yes Notes: Memori a 10-11 Same as: l 16:11: Ancef Manpreet Calcium No 1,000 mL, Memor ia Chloride 10-11 Rate: 25 l 0.0014 16:10: ml/hr, Talmo MEQ/ML / 00 Infuse Potassium over: 40 Chloride hr, Route: 0.004 IV, Dosing MEQ/ML / Weight Sodium 50.455 kg, Chloride Total 0.103 Volume: MEQ/ML / 1,000, Sodium Start Lactate date: 0.028 10/11/13 MEQ/ML 11:10:00, Injectable Duration: Solution 30 day, Stop date: 11/10/13 11:09:00 zoledronic Yes 0 Memoria acid 0.05 5-30 Refill(s) l MG/ML 16:03: Manpreet Injectable 00 Solution [Reclast] Trazodone Yes 50 mg = 1 Mem oria Hydrochlori 5-30 tab, PO, l de 50 MG 16:03: Bedtime, # Her willams Oral Tablet 00 270 tab, 0 Refill(s) tramadol Yes 50 mg = 1 Tanmay kerrie hydrochlori 5-30 tab, PO, l de 50 MG 16:03: Q6H, Pain, Her willams Oral Tablet 00 # 40 tab, 0 Refill(s) Omeprazole Yes 20 mg = 1 Me moria 20 MG 5-30 cap, PO, l Enteric 16:03: Daily, # Gavino n Coated 00 30 cap, 0 Capsule Refill(s) [Prilosec] Vitamin Yes 0 Memoria B-12 1000 5-30 Refill(s) l mcg 16:02: Manpreet sublingual 00 tablet Milnacipran Yes 0 Memori a hydrochlori 5-30 Refill(s) l de 50 MG 16:02: Talmo Oral Tablet 00 [Savella] Lutein Yes 0 Memoria 5-30 Refill(s) l 16:02: Talmo 00 Simvastatin Yes 20 mg = 1 M emoria 20 MG Oral 5-30 tab, PO, l Tablet 16:02: Bedtime, # Ana nn [Zocor] 00 90 tab, 0 Refill(s) docosahexae Yes 0 Memori a noic acid 5-30 Refill(s) l 200 MG / 16:02: Manpreet Eicosapenta 00 enoic Acid 300 MG / Vitamin E 1 UNT Oral Capsule pregabalin Yes 150 mg = 1 M emoria 150 MG Oral 5-30 cap, PO, l Capsule 16:01: Daily, # Gavino n [Lyrica] 00 90 cap, 0 Refill(s) One-A-Day Yes 1 tab, PO, Me moria Women 50 5-30 Daily, # l Plus oral 16:01: 30 tab, 0 Her willams tablet 00 Refill(s) gabapentin Yes 600 mg = 1 M emoria 600 MG Oral 5-30 tab, PO, l Tablet 16:01: QID, # 90 Gavino n 00 tab, 0 Refill(s) Bactrim DS Yes 1 tab, PO, M emoria 5-30 BID, # 6 l 16:00: tab, 0 Manpreet 00 Refill(s) Doxycycline Yes 100 mg = 1 Memoria 100 MG Oral 5-30 cap, PO, l Capsule 16:00: Daily, # 7 Herm aleksander 00 cap, 0 Refill(s) Docusate Yes 100 mg = 1 Mem oria Sodium 100 5-30 cap, PO, l MG Oral 16:00: BID, Talmo Capsule 00 Constipati [Colace] on, # 20 cap, 0 Refill(s) Calcium Yes 0 Memoria Citrate 5-30 Refill(s) l 16:00: Manpreet 00 ferrous Yes 325 mg, Memoria sulfate 325 5-30 PO, Daily, l MG Oral 16:00: # 30 tab, Ana nn Tablet 00 0 [Feosol] Refill(s) Vital Signs Vital Name Observation Time Observation Value Comments Source Systolic (mm Hg) 2019-07-13 15:33:00 Tanmay riajanie Case Diastolic (mm Hg) 2019-07-13 15:33:00 Nahomy orial Talmo Heart Rate 2019-07-13 15:33:00 [facility] Respitory Rate 2019-07-13 15:33:00 Jeramy al Talmo Height 2019-07-13 15:33:00 152.4 cm [facility] Weight 2019-07-13 15:33:00 [facility]mo BMI Calculated 2019-07-13 15:33:00 Memori al Talmo Systolic (mm Hg) 2019-04-13 15:54:00 Tanmay rial Manpreet Diastolic (mm Hg) 2019-04-13 15:54:00 Mem orial Talmo Heart Rate 2019-04-13 15:54:00 [facility] Talmo Respitory Rate 2019-04-13 15:54:00 Memori al Talmo Height 2019-04-13 15:54:00 152.4 cm [facility] Manpreet Weight 2019-04-13 15:54:00 [facility] Talmo BMI Calculated 2019-04-13 15:54:00 Memori al Manpreet Systolic (mm Hg) 2019-01-17 13:42:00 Tanmay rial Manpreet Diastolic (mm Hg) 2019-01-17 13:42:00 Mem orial Manpreet Heart Rate 2019-01-17 13:42:00 [facility] Manpreet Respitory Rate 2019-01-17 13:42:00 Memori al Manpreet Height 2019-01-17 13:42:00 154.94 cm [facility] Talmo Weight 2019-01-17 13:42:00 [facility] Manpreet BMI Calculated 2019-01-17 13:42:00 Memori al Talmo Weight 2018-11-03 15:00:00 [facility] Talmo BMI Calculated 2018-11-03 15:00:00 Memori al Manpreet Heart Rate 2018-11-03 15:00:00 [facility] Manpreet Respitory Rate 2018-11-03 15:00:00 Memori al Manpreet Systolic (mm Hg) 2018-11-03 15:00:00 Tanmay rial Talmo Diastolic (mm Hg) 2018-11-03 15:00:00 Mem orial Talmo Height 2018-11-03 15:00:00 152.4 cm [facility] Manpreet Height 2018-09-23 20:46:00 154.94 cm [facility] Manpreet Weight 2018-09-23 20:46:00 [facility] Talmo BMI Calculated 2018-09-23 20:46:00 Memori al Manpreet Systolic (mm Hg) 2018-09-23 20:46:00 Tanmay rial Talmo Diastolic (mm Hg) 2018-09-23 20:46:00 Mem orial Manpreet Heart Rate 2018-09-23 20:46:00 [facility] Talmo Respitory Rate 2018-09-23 20:46:00 Memori al Manpreet Heart Rate 2013-10-11 19:45:00 [facility] Manpreet Systolic (mm Hg) 2013-10-11 19:45:00 Tanmay rial Talmo Diastolic (mm Hg) 2013-10-11 19:45:00 Mem orial Talmo Respitory Rate 2013-10-11 19:45:00 Memori al Talmo Diastolic (mm Hg) 2013-10-11 19:30:00 Mem orial Manpreet Systolic (mm Hg) 2013-10-11 19:30:00 Tanmay rial Manpreet Respitory Rate 2013-10-11 19:30:00 Memori al Talmo Systolic (mm Hg) 2013-10-11 19:15:00 Tanmay rial Talmo Diastolic (mm Hg) 2013-10-11 19:15:00 Mem orial Talmo Respitory Rate 2013-10-11 19:15:00 Memori al Manpreet Heart Rate 2013-10-11 16:09:00 [facility] Manpreet Temperature Oral (F) 2013-10-11 16:09:00 98.5 F [facility] Talmo Weight 2013-09-23 15:51:00 [facility] Talmo BMI Calculated 2013-09-23 15:51:00 Memori al Manpreet Height 2013-09-23 15:51:00 154.94 cm [facility] Manpreet Procedures Procedure Date / Time Performed Performing Clinician [facility] yulisa Cervical spinal fusion 2008-04-27 00:00:00 Edison metz Talmo Partial resection of 2005-04-27 00:00:00 [place] Case colon Adrenal gland operation 2004-04-27 00:00:00 Tanmay rial Talmo Hysterectomy 1978-04-27 00:00:00 [facility] willams Appendectomy 1955-04-27 00:00:00 [facility] Her willams Colonoscopy [facility] Manpreet Encounters Start End Encounter Admission Attending Care Care Encounter Source Date/Time Date/Time Type Type Clinicians Facility Department ID 2019-11-11 2019-11-11 Outpatient ANSLEY Ritchie [id number] 11:45:00 23:59:59 Jung 06 Troy 2019-11-11 2019-11-11 Outpatient ANSLEY Ritchie [id number] 11:45:00 11:45:00 Jung 05 Troy 2019-07-13 2019-07-13 Outpatient Erma, MHMISCHER MHMISCHER [id number] 10:15:00 23:59:59 Jung 04 Troy 2019-04-13 2019-04-13 Outpatient Erma, MHMISCHER MHMISCHER [id number] 09:45:00 23:59:59 Jung 03 Troy 2019-02-02 2019-02-02 Outpatient Erma, MHMISCHER MHMISCHER [id number] 15:00:00 15:00:00 Jung 97 Troy 2019-01-26 2019-01-26 Outpatient Erma, MHMISCHER MHMISCHER [id number] 15:00:00 15:00:00 Jung 98 Troy 2019-01-20 2019-01-20 Outpatient Erma, MHMISCHER MHMISCHER [id number] 15:45:00 15:45:00 Jung Troy 2019-01-17 2019-01-17 Outpatient Erma, MHMISCHER MHMISCHER [id number] 09:00:00 23:59:59 Jung 02 Troy 2019-01-12 2019-01-12 Outpatient Erma, MHMISCHER MHMISCHER [id number] 16:00:00 16:00:00 Jung 00 Troy 2019-01-05 2019-01-05 Outpatient Erma, MHMISCHER MHMISCHER [id number] 13:30:00 13:30:00 Jung 99 Troy 2018-11-03 2018-11-03 Outpatient Erma, MHMISCHER MHMISCHER [id number] 10:15:00 23:59:59 Jung 96 Troy 2018-09-23 2018-09-23 Outpatient Erma, MHMISCHER MHMISCHER [id number] 15:30:00 23:59:59 Jung 95 Troy 2015-07-27 2015-07-27 Outpatient Likover, [facility] [id number] 11:15:00 23:59:00 Dillon Janie 92 2013-10-11 2013-10-11 Outpatient Likover, [facility] [id number] 07:30:00 16:04:00 Dillon L 00 2013-09-12 2013-09-12 Outpatient Likover, [facility] [id number] 11:49:00 23:59:00 Dillon Gimenez 39 Results Test Description Test Time Test Comments Results Result Comments Source HEMATOLOGY 2013-09-23 39.9 Diana hendricks 16:30:21 HEMATOLOGY 2013-09-23 13.4 Diana hendricks 16:30:21
== END 2019-11-14 12:05 | disposition home or self-care (01) ==
LOC: DS 10:54
PROVIDERS: ATTEND Internal Medicine
DX: M81.0 Age-related osteoporosis without current pathological fracture (principal); R13.10 Dysphagia, unspecified
CPT/HCPCS: 96365; J3489

== ENCOUNTER 2020-01-16 02:58 | Emergency (ER) | payer OTHER, BC ==
--- OUTSIDE RECORDS SUMMARY | 2020-01-16 03:00 | XMS REPORT | Continuity of Care Document ---
:1945 Author Organization [facility] Information [place] Care Team Providers Name Role Phone [facility] Information [place] Unavailable Un available Problems Problem Status Onset Classification Date Comments Sourc e Date Reported [id number],RIGHT KNEE Active 09/16/19 MENISCUS TEAR 14 [facility] [id number],RIGHT KNEE Active 09/16/19 MENISCUS TEAR KNEE 14 [facility] 719.[facility] Active 09/13/19 MH 14 [facility] OSTEOARTHRITIS Active 04/27/19 RIGHT KNEE PAIN 01 [facility] rial [facility] Seizure (finding) Resolved 04/27/18 Problem 11/14/2019 M ischer 80 Neuro,[facility] Anemia (disorder) Resolved Problem 11/14/2019 M [facility] Neuro 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 Neuro, MH (disorder) [facility] Carpal tunnel Active Problem 11/14/2019 Misch er syndrome (disorder) Neuro Diverticulitis Active Problem 11/14/2019 Misc her (disorder) Neuro,[facility] Dystonia (disorder) Active Problem 11/14/2019 [facility] Fibromyalgia Active Problem 11/14/2019 Mische r (disorder) Neuro Gastroesophageal Active Problem 11/14/2019 Mi susan reflux disease Neuro (disorder) Hyperlipidemia Resolved Problem 11/14/2019 Misc her (disorder) Neuro Knee pain (finding) Active Problem 11/14/2019 [facility] Neuro,[facility] 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 N euro (disorder) Neck pain (finding) Active Problem 11/14/2019 [facility] Neuropathy Active Problem 11/14/2019 [facility] (disorder) Neuro,[facility] Osteoporosis Active Problem 11/14/2019 Mische r (disorder) Neuro Pneumonia Resolved Problem 11/14/2019 [facility] (disorder) Neuro Rhinitis (disorder) Active Problem 11/14/2019 [facility] Scoliosis deformity Active Problem 11/14/2019 [facility] of spine (disorder) Neuro Spinal stenosis in Active Problem 11/14/2019 [facility] cervical region Neur o (disorder) JOINT PAIN-L/LEG Active [facility] OSTEOARTHRITIS OF Active KNEE, UNSPECIFIED [facility] PAIN IN RIGHT KNEE Active [facility] Medications Medication Details Route Status Patient Ordering Order Source Instructions Provider Date baclofen 10 mg 10 mg = 1 tab, Active 11/10/ Mi susan oral tablet PO, BID, # 180 2020 Neuro tab, 1 Refill(s), Pharmacy: [facility], 152.4, cm, 07/13/19 10:33:00 CDT, Height, 50.909, kg, 07/13/19 10:33:00 CDT, Weight baclofen 10 mg 10 mg = 1 tab, Inactive 11/10/ M ischer oral tablet PO, BID, X 30 2020 Neuro day, # 60 tab, 3 Refill(s), Pharmacy: [facility], 152.4, cm, 07/13/19 10:33:00 CDT, Height, 50.909, kg, 07/13/19 10:33:00 CDT, Weight Milnacipran 50 mg = 1 tab, Active 11/10/ Misch er hydrochloride 50 PO, BID, # 180 2020 Neuro MG Oral Tablet tab, 1 [Savella] Refill(s), Pharmacy: [email or web address], 152.4, cm, 07/13/19 10:33:00 CDT, Height, 50.909, kg, 07/13/19 10:33:00 CDT, Weight pregabalin 150 MG 150 mg = 1 cap, Active 11/10/ [facility] Oral Capsule PO, TID, # 270 2020 Neur o [Lyrica] cap, 1 Refill(s), [place], Pharmacy: [facility], 152.4, cm, 07/13/19 10:33:00 CDT, Height, 50.909, kg, 07/13/19 10:33:00 CDT, Weight pregabalin 150 MG 150 mg = 1 cap, Active 07/12/ [facility] Oral Capsule PO, TID, # 270 2020 Neur o [Lyrica] cap, 1 Refill(s), [place], Pharmacy: [email or web address] baclofen 10 mg 10 mg = 1 tab, Active Mi susan oral tablet PO, BID, # 60 2020 Neuro tab, 3 Refill(s), Pharmacy: [facility] pregabalin 150 MG 150 mg [...] Oral Tablet tab, 1 [Savella] Refill(s), Pharmacy: [email or web address] pregabalin 150 MG 150 mg [...] MG / Hydrocodone Q4-6H, Pain, # 2014 [facility] Bitartrate 5 MG 30 tab, 0 City Oral Tablet [[place] Refill(s) 5/325] enalaprilat Notes: (Same Inactive as: Vasotec-IV) 2013 [facility] Calcium Chloride 1,000 mL, Rate: Inactive 0.0014 MEQ/ML / 125 ml/hr, 2014 [facility] Potassium Chloride Infuse over: 8 City 0.004 MEQ/ML / hr, Route: IV, Sodium Chloride Dosing Weight 0.103 MEQ/ML / 50.455 kg, Sodium Lactate Total Volume: 0.028 MEQ/ML 1,000, Start Injectable date: 10/11/13 Solution 13:33:00, Duration: 30 day, Stop date: 11/10/13 13:32:00 Naloxone Notes: Same as Inactive Narcan 2013 [facility] Flumazenil Notes: (Same Inactive as: Romazicon) 2013 [facility] Morphine Notes: (Same Inactive as: MORPhine 2014 [facility] Sulfate) [facility] Acetaminophen Notes: Infuse Inactive over 15 minutes 2014 [facility] Do not exceed City 4gm/day of acetaminophen Ondansetron Notes: (Same Inactive as: Zofran) 2013 [facility] Lidocaine 0.5 mL, Route: Inactive Hydrochloride 10 INTRADERM, 2014 [facility] rial MG/ML Injectable Dosing Weight C ity Solution 50.455, kg, ONCALL, Start date: 10/11/13 12:00:00, Duration: 1 doses or times Cefazolin Notes: Same as: Inactive Ancef 2013 [facility] Calcium Chloride 1,000 mL, Rate: Inactive 0.0014 [...] Refill(s) Active 05/30/ MH 0.05 MG/ML 2013 [facility] Injectable City Solution [Reclast] Trazodone 50 mg = 1 tab, Active Hydrochloride 50 PO, Bedtime, # 2013 [facility] MG Oral Tablet 270 tab, 0 [...] 1000 0 Refill(s) Active mcg sublingual 2013 [facility] tablet [facility] Milnacipran 0 Refill(s) Active hydrochloride 50 2013 Memoria l MG Oral Tablet City [Savella] Lutein 0 Refill(s) Active 2013 [facility] Simvastatin 20 MG 20 mg = 1 tab, Active Oral Tablet PO, Bedtime, # 2014 [facility] [Zocor] 90 tab, 0 City Refill(s) docosahexaenoic 0 Refill(s) Active acid 200 MG / 2013 [facility] Eicosapentaenoic City Acid 300 MG / [...] BID, Active # 6 tab, 0 2013 [facility] Refill(s) [facility] Doxycycline 100 MG 100 mg = 1 cap, Active 09/23 Oral Capsule PO, Daily, # 7 2013 [place] rial cap, 0 City Refill(s) Docusate Sodium 100 mg = 1 cap, Active MH 100 MG Oral PO, BID, 2013 [facility] Capsule [Colace] Constipation, # City 20 cap, 0 Refill(s) Calcium Citrate 0 Refill(s) Active 2013 [facility] ferrous sulfate 325 mg, PO, Active [...] HEMATOLOGY Hct 39.9 36.0 - 48.0 2013 [facility] HEMATOLOGY Hgb 13.4 12.0 - 16.0 2013 [facility] Pathology Reports No Data Provided for This Section Diagnostic Reports Report Value Date Source Knee 4+ views EXAMINATION: Right knee 4+ views unilateral 04/2015 [facility] unilateral DX HISTORY: Right knee pain; me [...] Exam: Right knee x-ray, 4 views 09/12/2013 [facility] Reason for Exam: Right knee pain Comparison [...] Comments Source Systolic (mm Hg) 126 07/13/2019 [facility] Love ro Diastolic (mm Hg) 83 07/13/2019 [facility] Ne uro Heart Rate 68 07/13/2019 [facility] Neuro Respitory Rate 16 07/13/2019 [facility] Neuro Height 152.4 cm 07/13/2019 [facility] Neuro Weight 50.909 07/13/2019 [facility] BMI [...] [facility] Ne uro Heart Rate 70 01/17/2019 [facility] Neuro Respitory Rate 16 01/17/2019 [facility] Height 154.94 cm 01/17/2019 [facility] Neuro Weight 51.364 01/17/2019 [facility] Neuro BMI Calculated 21.4 01/17/2019 [facility] Neuro Weight 51.818 11/03/2018 [facility] BMI Calculated 22.31 11/03/2018 [facility] Neuro Heart Rate 71 11/03/2018 [facility] Neuro Respitory Rate 16 11/03/2018 [facility] Systolic (mm Hg) 102 11/03/2018 [facility] Love ro Diastolic (mm Hg) 64 11/03/2018 [facility] Ne uro Height 152.4 cm 11/03/2018 [facility] Height 154.94 cm 09/23/2018 [facility] Neuro Weight 51.818 09/23/2018 [facility] Neuro BMI Calculated 21.59 09/23/2018 [facility] Systolic (mm Hg) 115 09/23/2018 [facility] Love ro Diastolic (mm Hg) 86 09/23/2018 [facility] Ne uro Heart Rate 74 09/23/2018 [facility] Neuro Respitory Rate 16 09/23/2018 [facility] Neuro Heart Rate 70 10/11/2013 [facility] Cit y Systolic (mm Hg) 129 10/11/2013 [facility] City Diastolic (mm Hg) 85 10/11/2013 [facility] City Respitory Rate 15 10/11/2013 [facility] C ity Diastolic (mm Hg) 79 10/11/2013 [facility] l [facility] Systolic (mm Hg) 132 10/11/2013 [facility] City Respitory Rate 13 10/11/2013 [facility] C ity Systolic (mm Hg) 133 10/11/2013 [facility] Diastolic (mm Hg) 84 10/11/2013 [facility] [place] Respitory Rate 14 10/11/2013 Diana par[facility] Heart Rate 74 10/11/2013 [facility] Cit y Temperature Oral (F) 98.5 F 10/11/2013 [facility] Weight 50.455 09/23/2013 [facility] Cit y BMI Calculated 21.02 09/23/2013 Diana parra Height 154.94 cm 09/23/2013 [facility] Cit y Encounters Location Location Encounter Encounter Reason Attending ADM DC Stat us Source Details Type Number For Provider Date Date Visit [facility] Outpatient [id number] [place] 09/12 09/13 [facility]2013 [facility] OBS Day [id number] Dillon 10/11 10/11 [facility] [facility]2013 [facility] Outpatient [id number] Dillon 07/26 07/27 [facility] /2015 [facility] Outpatient [id number] LATANYA 07/14 [facility] [place] Outpatient [id number] Latanya 07/27 [facility] [place] Outpatient [id number] Latanya 09/23 [facility] [place] MNA Outpatient [id number] Latanya 09/23 09/24 [facility] Neurology [facility] [place] Outpatient [id number] Latanya 11/03 [facility] [place] MNA Outpatient [id number] Latanya 11/03 11/04 [facility] Neurology [facility] Neuro [place] Outpatient [id number] Latanya 01/05 [facility] [place] MNA Ambulatory [id number] Latanya 01/05 01/05 [facility] Neurology Pre-Reg [facility] Neuro [place] Outpatient [id number] Latanya 01/12 [facility] [place] [facility]NA Ambulatory [id number] Latanya 01/12 01/12 [facility] Neurology Pre-Reg [facility] Neuro [place] Outpatient [id number] Latanya 01/17 [facility] [place] MNA Outpatient [id number] Latanya 01/17 01/18 [facility] Neu[facility] Neuro [place] Outpatient [id number] Latanya [facility]20 [facility] [place] [facility] [id number] Latanya 01/20 01/20 [facility] Pre-Reg [place] [place] Outpatient [id number] Latanya 01/26 [facility] [place] [facility] [id number] Latanya 01/26 01/26 [facility] Pre-Reg [facility] [place] Outpatient [id number] Latanya 02/02 [facility] [place] [facility] [id number] Latanya 02/02 02/02 [facility] Pre[facility] [place] Outpatient [id number] Latanya 04/13 Active [facility] [place] MNA Outpatient [id number] Latanya 04/13 04/14 [facility] [place] Outpatient [id number] Latanya 07/12 Active [facility] [place] MNA Outpatient [id number] Latanya 07/12 07/13 [facility] [place] Outpatient [id number] Latanya 11/10 Active [facility] [place] Outpatient [id number] Latanya 11/10 Active [facility] [place] [facility] Ambulatory [id number] Latanya 11/10 11/10 [facility] Pre-Reg [facility] [place] MNA Outpatient [id number] Latanya 11/10 11/11 [facility] [place] /2019 Neuro [place] Outpatient [id number] Latanya 03/14 Active [facility] [place] Procedures Procedure Code Date Perfomer Comments Source Cervical spinal [id number] 04/27/2008 [facility] fusion Neuro,[facility] Partial resection [id number] 04/27/2005 [facility] of colon Neuro,[facility] Adrenal gland [id number] 04/27/2004 [facility] operation Neuro,[facility] Hysterectomy [id number] 04/27/1978 [facility] Neuro,[facility] Appendectomy [id number] 04/27/1955 [facility] Neuro,[facility] Colonoscopy [id number] [facility] Neuro Assessment and Plan No Data Provided for This Section Plan of Care No Data Provided for This Section Social History Social History Date Source Social History TypeResponse 09/23/2013 [facility] o Alcohol Current, Frequency: 1-2 times per month. 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 Pillai- PCP and Dr. Cheney- other Neurologist Social History TypeResponse 09/23/2013 [facility] Alcohol Current, Frequency: 1-2 times per month. Smoking Status Unknown if ever smoked; Exposure to [employer] Smoke None; Cigarette Smoking Last 365 Days No; Reg Smoking Cessation Counseling No Family History No Data Provided for This Section Advance Directives No Data Provided for This Section Functional Status No Data Provided for This Section
--- OUTSIDE RECORDS SUMMARY | 2020-01-16 03:01 | XMS REPORT | Continuity of Care Document ---
:1945 Author Organization [facility] t Address [address] [place] [address] Care Team Providers Name Role Phone Troy Ritchie Attending Clinician Janie Rose Attending Clinician Janie Rose Admitting Clinician Problems Condition Condition Condition Status Onset Resolution Last Treating Co mments Source Name Details Category Date Date Treatment Clinician Date 18056,RIG Diagnosis Active 2013-09-23 Memoria T KNEE - 10:33:00 l MENISCUS 00:00: Manpreet TEAR [id number],RIGH 00 T KNEE MENISCUS TEAR Active 09/15/2013 [facility] [id number],RIGH Diagnosis Active 2013-10-11 Memoria T KNEE - 07:31:00 l MENISCUS 00:00: [place] TEAR KNEE [id number],RIGH 00 ARTH T KNEE MENISCUS TEAR KNEE ARTH Active 09/15/2013 [facility] 719.46 Diagnosis Active 2013-09-13 Mem oria - 13:19:00 l 719.46 00:00: [place] 00 Active 09/12/2013 [facility] OSTEOARTHR Diagnosis Active 2015-07-27 Memoria ITIS RIGHT - 11:27:00 l KNEE PAIN 00:00: Manpreet OSTEOARTHR 00 ITIS RIGHT KNEE PAIN Active 04/27/2000 [facility] Anemia Problem Resolve 2019-11-14 Tanmay kerrie (disorder) d 00:04:05 l Anemia Man[place]reet (disorder) Resolved Problem 11/14/2019 [facility] 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) [facility] Hyperlipid Problem Resolve 2019-11-14 Memoria emia d 00:04:05 l (disorder) Gavino n Hyperlipid emia (disorder) Resolved Problem 11/14/2019 [facility] Pneumonia Problem Resolve 2019-11-14 M emoria (disorder) d 00:04:05 l [place] Pneumonia (disorder) Res[facility] Carpal Problem Active 2019-11-14 Memor ia tunnel 00:04:05 l syndrome Carpal Gavino n (disorder) tunnel syndrome (disorder) Active Problem [facility]14[facility]2019 [facility] Diverticul Problem Active 2019-11-14 M emoria itis 00:04:05 l (disorder) Gav[place] n Diverticul itis (disorder) Active Problem 11/14/2019 [facility] Dystonia Problem Active 2019-11-14 Mem oria (disorder) 00:04:05 l Dystonia Gavino n (disorder) Active Problem 11/14/2019 [facility] Fibromyalg Problem Active 2019-11-14 M emoria ia 00:04:05 l (disorder) Gavino n Fibromyalg ia (disorder) Active Problem 11[facility]14/2019 [facility] Gastroesop Problem Active 2019-11-14 M emoria hageal 00:04:05 l reflux [place] disease Gastroesop (disorder) hageal reflux disease (disorder) Active Problem 11/14/2019 [facility] Knee pain Problem Active 2019-11-14 Me moria (finding) 00:04:05 l Knee [place] pain (finding) Active Problem 11/14/2019 [facility] 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) Active Problem 11/14/2019 [facility] Neck pain Problem Active 2019-11-14 Me moria (finding) 00:04:05 l Neck Man[place] pain (finding) Active Problem 11/14/2019 [facility] Neuropathy Problem Active 2019-11-14 M emoria (disorder) 00:04:05 l [place] Neuropathy (disorder) Active Problem 11/14/2019 [facility] Osteoporos Problem Active 2019-11-14 M emoria is 00:04:05 l (disorder) Gavino n Osteoporos is (disorder) Active Problem 11/14/2019 [facility] Rhinitis Problem Active 2019-11-14 Mem oria (disorder) 00:04:05 l Rhinitis Gavino n (disorder) Active Problem 11/14/2019 [facility] Scoliosis Problem Active 2019-11-14 Me moria deformity 00:04:05 l of spine Manpreet (disorder) Scoliosis deformity of spine (disorder) Active Problem 11/14/2019 [facility] Spinal Problem Active 2019-11-14 Memor ia stenosis 00:04:05 l in Spinal [place] cervical stenosis region in (disorder) cervical region (disorder) Active Problem 11/14/2019 [facility] JOINT Diagnosis Active 2013-09-13 Mem oria PAIN-L/LEG 13:19:00 l JOINT Manpreet PAIN-L/LEG Active [facility] OSTEOARTHR Diagnosis Active 2015-07-27 Memoria ITIS OF 11:27:00 l KNEE, Manpreet UNSPECIFIE OSTEOARTHR D ITIS OF KNEE, UNSPECIFIE D Active [facility] PAIN IN Diagnosis Active 2015-07-27 Me moria RIGHT KNEE 11:27:00 l PAIN IN [place] RIGHT KNEE Active [facility] History of Past Illness Condition Condition Condition Status Onset Resolution Last Treating Co mments Source Name Details Category Date Date Treatment Clinician Date Seizure Problem Resolve 1979-2019-11-14 2019-11-14 Memoria (finding) d - 00:04:05 00:04:05 l Seizure 00:00: [place] (finding) 00 Resolved 04/27/1979 Problem 11/14/2019 [facility] Allergies, Adverse Reactions, Alerts Allergy Allergy Status Severity Reaction(s) Onset Inactive Treating Comm ents Source Name Type Date Date Clinician No Known No Known Active Memori a Medicati Medicati l on on Manpreet Allergie Allergie s s Social History Social Habit Start Date Stop Date Quantity Comments Source Social History 2013-09-23 2013-09-23 [facility] karmen 15:57:59 15:57:59 Medications Ordered Filled Start Stop Current Ordering Indication Dosage Frequency Signature Comments Components Source Medication Medication Date Date Medication? Clinician (SIG) Name Name baclofen 10 Yes 10 mg = 1 M emoria mg oral 7-17 tab, PO, l tablet 23:32: BID, # 180 Ana nn 00 tab, 1 Refill(s), Pharmacy: [facility], 152.4, cm, 07/13/19 10:33:00 CDT, Height, 50.909, kg, 07/13/19 10:33:00 CDT, Weight baclofen 10 2019-0 No 10 mg = 1 M emoria mg oral 7-17 tab, PO, l tablet 16:58: BID, X 30 Gavino n 00 day, # 60 tab, 3 Refill(s), Pharmacy: [facility], 152.4, cm, 07/13/19 10:33:00 CDT, [...] 00 cap, 1 Refill(s), [place]AR[place], Pharmacy: [facility], 152.4, cm, 07/13/19 10:33:00 CDT, Height, 50.909, kg, 07/13/19 10:33:00 CDT, Weight pregabalin 2020-0 Yes 150 mg = 1 M emoria 150 MG Oral 3-18 cap, PO, l Capsule 15:53: TID, # 270 Herm aleksander [Lyrica] 00 cap, 1 Refill(s), [place], Pharmacy: [facility] baclofen 10 2020-0 Yes 10 mg = 1 M emoria mg oral 3-18 tab, PO, l tablet 15:53: BID, # 60 Gavino n 00 tab, 3 Refill(s), Pharmacy: [facility] pregabalin 2018-1 Yes 150 mg [...] Q4-6H, l Hydrocodone 18:37: Pain, # 30 [place] Bitartrate 00 tab, 0 5 MG Oral Refill(s) Tablet [[place] 5/325] enalaprilat No Notes: Tanmay kerrie 6-17 (Same as: l 18:33: Vasotec-IV [place] ) Calcium No 1,000 mL, Memor ia [...] Memoria 6-17 Same as l 18:33: Narcan [place] Flumazenil No Notes: Memor ia 6-17 (Same as: l 18:33: Romazicon) Morphine No Notes: Memoria 6-17 (Same as: l 18:33: MORPhine Man[place]reet Sulfate) Acetaminoph No Notes: Tanmay kerrie en -17 Infuse l 18:33: over 15 Manpreet 00 minutes Do not exceed 4gm/day of acetaminop hen Ondansetron No Notes: Tanmay kerrie 6-17 (Same as: l 18:33: Zofran) [place] Lidocaine No 0.5 mL, Memor ia Hydrochlori 10-11 Route: l de 10 MG/ML 17:00: INTRADERM, Manpreet Injectable 00 Dosing Solution Weight 50.455, kg, ONCALL, Start date: 10/11/13 12:00:00, Duration: 1 doses or times Cefazolin Yes Notes: Memori a 10-11 Same as: l 16:11: Ancef [place] Calcium No 1,000 mL, Memor ia Chloride 10-11 Rate: 25 l 0.0014 16:10: ml/hr, Manpreet MEQ/ML / 00 Infuse Potassium over: 40 Chloride hr, Route: 0.004 IV, Dosing MEQ/ML / Weight Sodium 50.455 kg, Chloride Total 0.103 Volume: MEQ/ML / 1,000, Sodium Start Lactate date: 0.028 10/11/13 MEQ/ML 11:10:00, Injectable Duration: Solution 30 day, Stop date: 11/10/13 11:09:00 zoledronic Yes 0 Memoria acid 0.05 5-30 Refill(s) l MG/ML 16:03: [place] Injectable 00 Solution [Reclast] Trazodone Yes 50 [...] B-12 1000 5-30 Refill(s) l mcg 16:02: [place] sublingual 00 tablet Milnacipran Yes 0 Memori a hydrochlori 5-30 Refill(s) l de 50 MG 16:02: Manpreet Oral Tablet 00 [Savella] Lutein Yes 0 Memoria 5-30 Refill(s) l 16:02: Manpreet 00 Simvastatin Yes 20 mg = 1 M emoria 20 MG Oral 5-30 tab, PO, l Tablet 16:02: Bedtime, # Ana nn [Zocor] 00 90 tab, 0 Refill(s) docosahexae Yes 0 Memori a noic acid 5-30 Refill(s) l 200 MG / 16:02: [place] Eicosapenta 00 enoic Acid 300 MG / [...] cap, PO, l MG Oral 16:00: BID, [place] Capsule 00 Constipati [Colace] on, # 20 cap, 0 Refill(s) Calcium Yes 0 Memoria Citrate 5-30 Refill(s) l 16:00: [place] 00 ferrous Yes 325 mg, Memoria sulfate 325 5-30 PO, Daily, l MG Oral 16:00: # 30 tab, Ana nn Tablet 00 0 [Feosol] Refill(s) Vital Signs Vital Name Observation Time Observation Value Comments Source Systolic (mm Hg) 2019-07-13 15:33:00 Tanmay riajanie Case Diastolic (mm Hg) 2019-07-13 15:33:00 Nahomy orial [place] Heart Rate 2019-07-13 15:33:00 [facility] Respitory Rate 2019-07-13 15:33:00 Jeramy al [place] Height 2019-07-13 15:33:00 152.4 cm [facility] Weight 2019-07-13 15:33:00 [facility] [place] BMI Calculated 2019-07-13 15:33:00 Memori al [place] Systolic (mm Hg) 2019-04-13 15:54:00 Tanmay rial [place] Diastolic (mm Hg) 2019-04-13 15:54:00 Mem orial [place] Heart Rate 2019-04-13 15:54:00 [facility] [place] Respitory Rate 2019-04-13 15:54:00 Memori al [place] Height 2019-04-13 15:54:00 152.4 cm [facility] [place] Weight 2019-04-13 15:54:00 [facility] [place] BMI Calculated 2019-04-13 15:54:00 Memori al [place] Systolic (mm Hg) 2019-01-17 13:42:00 Tanmay rial [place] Diastolic (mm Hg) 2019-01-17 13:42:00 Mem orial [place] Heart Rate 2019-01-17 13:42:00 [facility] [place] Respitory Rate 2019-01-17 13:42:00 Memori al [place] Height 2019-01-17 13:42:00 154.94 cm [facility] [place] Weight 2019-01-17 13:42:00 [facility] [place] BMI Calculated 2019-01-17 13:42:00 Memori al [place] Weight 2018-11-03 15:00:00 [facility] [place] BMI Calculated 2018-11-03 15:00:00 Memori al [place] Heart Rate 2018-11-03 15:00:00 [facility] [place] Respitory Rate 2018-11-03 15:00:00 Memori al [place] Systolic (mm Hg) 2018-11-03 15:00:00 Tanmay rial [place] Diastolic (mm Hg) 2018-11-03 15:00:00 Mem orial [place] Height 2018-11-03 15:00:00 152.4 cm [facility] [place] Height 2018-09-23 20:46:00 154.94 cm [facility] [place] Weight 2018-09-23 20:46:00 [facility] [place] BMI Calculated 2018-09-23 20:46:00 Memori al [place] Systolic (mm Hg) 2018-09-23 20:46:00 Tanmay rial [place] Diastolic (mm Hg) 2018-09-23 20:46:00 Mem orial [place] Heart Rate 2018-09-23 20:46:00 [facility] [place] Respitory Rate 2018-09-23 20:46:00 Memori al [place] Heart Rate 2013-10-11 19:45:00 [facility] [place] Systolic (mm Hg) 2013-10-11 19:45:00 Tanmay rial [place] Diastolic (mm Hg) 2013-10-11 19:45:00 Mem orial [place] Respitory Rate 2013-10-11 19:45:00 Memori al [place] Diastolic (mm Hg) 2013-10-11 19:30:00 Mem orial [place] Systolic (mm Hg) 2013-10-11 19:30:00 Tanmay rial [place] Respitory Rate 2013-10-11 19:30:00 Memori al [place] Systolic (mm Hg) 2013-10-11 19:15:00 Tanmay rial [place] Diastolic (mm Hg) 2013-10-11 19:15:00 Mem orial [place] Respitory Rate 2013-10-11 19:15:00 Memori al [place] Heart Rate 2013-10-11 16:09:00 [facility] [place] Temperature Oral (F) 2013-10-11 16:09:00 98.5 F [facility] [place] Weight 2013-09-23 15:51:00 [facility] [place] BMI Calculated 2013-09-23 15:51:00 Memori al [place] Height 2013-09-23 15:51:00 154.94 cm [facility] Man[place] Procedures Procedure Date / Time Performed Performing Clinician [facility] yulisa Cervical spinal fusion 2008-04-27 00:00:00 Edison metz [place] Partial resection of 2005-04-27 00:00:00 [place] Case colon Adrenal gland operation 2004-04-27 00:00:00 Tanmay rial [place] Hysterectomy 1978-04-27 00:00:00 [facility] willams Appendectomy 1955-04-27 00:00:00 [facility] Her willams Colonoscopy [facility] [place] Encounters Start End Encounter Admission Attending Care Care Encounter Source Date/Time Date/Time Type Type Clinicians Facility Department ID 2019-11-11 2019-11-11 Outpatient ANSLEY Ritchie [id number] 11:45:00 23:59:59 Jung 06 Troy 2019-11-11 2019-11-11 Outpatient ANSLEY Ritchie [id number] 11:45:00 11:45:00 Jung 05 Troy 2019-07-13 2019-07-13 Outpatient Erma, MHMISCHER MHMISCHER [id number] 10:15:00 23:59:59 Jung 04 Troy 2019-04-13 2019-04-13 Outpatient Erma, MHMISCHER MHMISCHER [id number] 09:45:00 23:59:59 Jung 03 Troy 2019-02-02 2019-02-02 Outpatient Erma, MHMISCHER MHMISCHER [id number] 15:00:00 15:00:00 Jung 97 Troy 2019-01-26 2019-01-26 Outpatient Erma, MHMISCHER MHMISCHER [id number] 15:00:00 15:00:00 Jung 98 Troy 2019-01-20 2019-01-20 Outpatient Erma, MHMISCHER MHMISCHER [id number] 15:45:00 15:45:00 Jung Troy 2019-01-17 2019-01-17 Outpatient Erma, MHMISCHER MHMISCHER [id number] 09:00:00 23:59:59 Jung 02 Troy 2019-01-12 2019-01-12 Outpatient Erma, MHMISCHER MHMISCHER [id number] 16:00:00 16:00:00 Jung 00 Troy 2019-01-05 2019-01-05 Outpatient Erma, MHMISCHER MHMISCHER [id number] 13:30:00 13:30:00 Jung 99 Troy 2018-11-03 2018-11-03 Outpatient Erma, MHMISCHER MHMISCHER [id number] 10:15:00 23:59:59 Jung 96 Troy 2018-09-23 2018-09-23 Outpatient Erma, MHMISCHER MHMISCHER [id number] 15:30:00 23:59:59 Jung 95 Troy 2015-07-27 2015-07-27 Outpatient Likover, [facility] [id number] 11:15:00 23:59:00 Dillon Janie 92 2013-10-11 2013-10-11 Outpatient Likover, [facility] [id number] 07:30:00 16:04:00 Dillon L 00 2013-09-12 2013-09-12 Outpatient Likover, [facility] [id number] 11:49:00 23:59:00 Dillon Gimenez 39 Results Test Description Test Time Test Comments Results Result Comments Source HEMATOLOGY 2013-09-23 39.9 Diana hendricks 16:30:21 HEMATOLOGY 2013-09-23 13.4 Diana hendricks 16:30:21
[2020-01-16] MEDS ORDERED: MORPHINE 4 MG/ML SYR ONE ×2 (03:20→06:22)
[2020-01-16] MEDS ORDERED: ONDANSETRON 4 MG/2 ML VIAL ONE (03:21)
[2020-01-16 03:43] LABS: Absolute Lymphocytes (CBC) 0.8 K/uL (0.7-4.9); Basophils % 0.3 % (0-1.3); Hematocrit 36.6 % (36.0-45.0); MPV 10.7 fL (7.6-11.3); RBC Red Blood Cell Count 4.19 M/uL (3.86-4.86)
[2020-01-16 03:46] LABS: Protime INR 0.95
[2020-01-16 03:50] LABS: Potassium 4.5 mmol/L (3.5-5.1)
--- NOTE | 2020-01-16 05:00 | ER ---
Nurse's Notes [facility] Name: Hemalatha Figueredo [place] Age: 75 yrs Sex: Female : 1945 Arrival Date: 01/16/2020 Time: 02:59 Bed 7 Private MD: Ernst Pillai V Diagnosis: Fall (on)(from) incline;Chest Wall Contusion;Abdominal Wall Contusion Presentation: 01/15 03:00 Chief complaint: EMS states: they were toned out for report of fall injury approx 2200 bb pt denies hitting her head not sure if she passed out or not now c/o pain to left side. Coronavirus screen: At this time, the client does not indicate any symptoms associated with coronavirus-19. Ebola Screen: No symptoms or risks identified at this time. Initial Sepsis Screen: Does the patient meet any 2 criteria? No. Patient's initial sepsis screen is negative. Does the patient have a suspected source of infection? No. Patient's initial sepsis screen is negative. Risk Assessment: Do you want to hurt yourself or someone else? Patient reports no desire to harm self or others. Onset of symptoms was January 16, 2020. 03:00 Method Of Arrival: EMS: [facility] bb 03:00 Acuity: JESSICA 3 bb 03:02 Care prior to arrival: None. Mechanism of Injury: Fall about 2 feet when she tried to bb "hop" into her elevator. Trauma event details: Injury occurred in the [facility], Injury occurred: at home. Injury occurred: January 16, 2020. Trauma Activation: Alert Physician: ED Physician; Name: Wallace; Notified At: 03:01; Arrived At: 03:01 Physician: General Surgeon; Name: ; Notified At: 03:01; Arrived At: Physician: Radiology; Name: Gifty aMin; Notified At: 03:01; Arrived At: 03:04 Physician: Respiratory; Name: ; Notified At: 03:01; Arrived At: Physician: Lab; Name: ; Notified At: 03:01; Arrived At: Historical: - Allergies: 03:17 No Known Allergies; bb - Home Meds: 03:17 Lyrica 150 mg Oral 3 times per day [Active]; Savella 50 mg oral tab 1 tab 2 times per bb day [Active]; trazodone 50 mg Oral tab 1 tab daily [Active]; tramadol 50 mg Oral tab 1 tab every 8 hours [Active]; omeprazole 20 mg Oral cpDR 1 cap once daily [Active]; Calcium+D oral 600 mg oral daily [Active]; docusate sodium 100 mg Oral cap 1 cap 2 times per day [Active]; ferrous sulfate 325 mg (65 mg iron) Oral TbEC daily [Active]; multivitamin oral oral [Active]; CoQ10 [Active]; Metamucil Smooth Texture Oral [Active]; Magnesium Oxide Oral [Active]; Ocuvite oral oral [Active]; Melatonin Oral [Active]; Excedrin Extra Strength oral oral [Active]; Ibuprofen Oral [Active]; baclofen 10 mg Oral tab 1 tab twice a day [Active]; Kely-D 12 Hour Oral [Active]; Probiotic oral oral [Active]; Preparation H Rectal [Active]; Hydrocortisone Topical [Active]; - PMHx: 03:17 chronic pain; Fibromyalgia; peripheral neuropathy; bronchiectasis; diverticulosis; bb spinal stenosis; adrenal gland tumor; Osteoporosis; GERD; - PSHx: 03:17 cervical spine; colon resection; Hysterectomy; Appendectomy; tumor on adrenal gland; bb - Immunization history: Last tetanus immunization: unknown. - Social history:: Smoking status: unknown. Screenin:02 Abuse screen: Denies threats or abuse. Tuberculosis screening: No symptoms or risk bb factors identified. 03:05 Nutritional screening: No deficits noted. Fall Risk Fall in past 12 months (25 points). bb Secondary diagnosis (15 points) impaired mobility, IV access (20 points). Gait- Weak (10 pts.). Mental Status- Overestimates/Forgets Limitations (15 pts.). Total Lozano Fall Scale indicates High Risk Score (45 or more points). Fall prevention measures have been instituted. Side Rails Up X 2 As available patient and family educated on Fall Prevention Program and Strategies. Primary Survey: 03:02 NO uncontrolled hemorrhage observed. A: The patient is alert. Airway: patent. bb Breathing/Chest: Respiratory pattern: regular, Respiratory effort: spontaneous, unlabored, Chest inspection: symmetrical rise and fall of the chest. Circulation: Heart tones present. Disability Alert. 03:48 Exposure/Environment: All clothing and personal items were removed. Forensic evidence mg2 collection is not deemed to be indicated at this time. Items placed in patient belonging bag. There is no evidence of uncontrolled external bleeding. Obvious injury(ies) are noted at this time: bruising in the left flank A warming method has been applied: A warm blanket has been provided to the patient. 05:43 Reassessment Airway Airway Patent Breathing/Chest Respiratory pattern Regular mg2 Respiratory effort Spontaneous Unlabored Breath sounds Clear Circulation Color [place] Disability Alert. Secondary Survey: 03:46 HEENT: No deficits noted. Gastrointestinal: No deficits noted. : No deficits noted. mg2 Musculoskeletal: Circulation, motion, and sensation intact. Capillary refill < 3 seconds. Injury Description: Bruise sustained to left flank is yellow, was sustained 10 pm last night. Assessment: 03:05 Pain: Complains of pain in left side Pain currently is 8 out of 10 on a pain scale. bb 03:46 Reassessment: patient sent to ct scan via stretcher. mg2 03:47 General: Appears in no apparent distress. comfortable, Behavior is calm, cooperative. mg2 Neuro: Level of Consciousness is awake, alert, obeys commands, Oriented to person, place, time, situation. EENT: No signs and/or symptoms were reported regarding the EENT system. Cardiovascular: Capillary refill < 3 seconds Patient's skin is warm and dry. Respiratory: Airway is patent Respiratory effort is even, unlabored, Respiratory pattern is regular, symmetrical. GI: No signs and/or symptoms were reported involving the gastrointestinal system. : No signs and/or symptoms were reported regarding the genitourinary system. Derm: Bruising that is yellow, on left flank. Musculoskeletal: Circulation, motion, and sensation intact. Capillary refill < 3 seconds. 04:30 Reassessment: Patient appears in no apparent distress at this time. Patient and/or mg2 family updated on plan of care and expected duration. Pain level reassessed. Patient is alert, oriented x 3, equal unlabored respirations, skin warm/dry/pink. 05:42 Reassessment: patient waiting for a ride home. mg2 06:52 Reassessment: awaiting transportation for pt to go home at this time, per [place] [facility] sg it is not passable during the night time hours due to low visibility. at best wait for daylight and attempt to transport patient back to her residence. pt stated understanding, states no one is able to come get her to take her back to her dwelling at this time, pt continues to wait in the ED at this time. Vital Signs: 03:00 BP 175 / 97; Pulse 72; Resp 18 S; Temp 99.2(O); Pulse Ox 100% on R/A; Weight 53.52 kg bb (R); Height 5 ft. 0 in. (152.40 cm) (R); Pain 8/10; 04:30 BP 149 / 90; Pulse 77; Resp 16; Pulse Ox 98% on R/A; sg 05:32 BP 152 / 90; Pulse 72; Resp 18; Pulse Ox 98% on R/A; mg2 03:00 Body Mass Index 23.05 (53.52 kg, 152.40 cm) bb Gee Coma Score: 03:02 Eye Response: spontaneous(4). Verbal Response: oriented(5). Motor Response: obeys bb commands(6). Total: 15. 04:30 Eye Response: spontaneous(4). Verbal Response: oriented(5). Motor Response: obeys sg commands(6). Total: 15. Trauma Score (Adult): 03:02 Eye Response: spontaneous(1); Verbal Response: oriented(1); Motor Response: obeys bb commands(2); Systolic BP: > 89 mm Hg(4); Respiratory Rate: 10 to 29 per min(4); Gee Score: 15; Trauma Score: 12 04:30 Eye Response: spontaneous(1); Verbal Response: oriented(1); Motor Response: obeys sg commands(2); Systolic BP: > 89 mm Hg(4); Respiratory Rate: 10 to 29 per min(4); [place] Score: 15; Trauma Score: 12 ED Course: 02:59 Patient arrived in ED. am2 03:02 Triage completed. bb 03:02 Patient has correct armband on for positive identification. Placed in gown. Bed in low bb position. Call light in reach. Side rails up X2. 03:02 Patient maintains SpO2 saturation greater than 95% on room air. bb 03:04 Kye Gonsalez MD is Attending Physician. [facility] 03:06 Ti Cook RN is Primary Nurse. sg 03:11 Inserted saline lock: 20 gauge in right antecubital area, using aseptic technique. mg2 Blood collected. 03:45 No provider procedures requiring assistance completed. mg2 03:47 Thermoregulation: warm blanket given to patient. mg2 03:48 Arm band placed on. mg2 04:17 Head C Spine Cap W Con In Process Unspecified. EDMS 06:17 IV discontinued, intact, bleeding controlled, No redness/swelling at site. Pressure mg2 dressing applied. 06:41 Ernst Pillai MD is Private Physician. sg Administered Medications: 03:23 Drug: morphine 4 mg Route: IVP; Site: right antecubital; mg2 05:32 Follow up: Response: No adverse reaction; Marked relief of symptoms mg2 03:23 Drug: Zofran (Ondansetron) 4 mg Route: IVP; Site: right antecubital; mg2 05:32 Follow up: Response: No adverse reaction; Marked relief of symptoms mg2 06:17 Drug: morphine 4 mg Route: IVP; Site: right antecubital; mg2 08:03 Follow up: Response: No adverse reaction; Pain is decreased sg Intake: 03:02 PO: 0ml; Total: 0ml. bb Outcome: 04:59 Discharge ordered by . [email or web address] 06:33 Discharged to home via ambulance. mg2 06:33 Condition: stable 06:33 Discharge instructions given to patient, Instructed on discharge instructions, follow up and referral plans. Demonstrated understanding of instructions, follow-up care. 06:33 Patient's length of stay was not longer than 2 hours. mg2 10:10 Patient left the ED. iw Signatures: Dispatcher [employer] EDMS Ti Cook RN RN sg Amarilis Shipley RN RN bb Leticia Roberto RN RN Constance Hanna Michele, TAMMI CADENA mg2 Kye Gonsalez MD MD 7
--- NOTE | 2020-01-16 05:00 | EDPHYS ---
Physician Documentation [facility] Name: Hemalatha Figueredo Hensel Age: 75 yrs Sex: Female : 1945 Arrival Date: 01/16/2020 Time: 02:59 Bed 7 Private MD: Ernst Pillai V ED Physician Kye Gonsalez HPI: 01/15 03:16 This 75 yrs old Female presents to ER via EMS with complaints of Fall. 7 03:16 Details of fall: The patient fell from a height, while climbing, in a freefall-type mh7 manner. Onset: The symptoms/episode began/occurred last night, at 22:00. Associated injuries: The patient sustained injury to the chest, specifically the left lateral posterior chest and left lateral anterior chest, tenderness, injury to the abdomen, specifically the posterior aspect of left lateral abdomen and anterior aspect of left lateral abdomen, tenderness. Severity of symptoms: At their worst the symptoms were moderate, earlier today, in the emergency department the symptoms are unchanged. Patient jumped toward an elevator to try to escape rising water at her home and hit her left side against an unknown object.. Historical: - Allergies: 03:17 No Known Allergies; bb - Home Meds: 03:17 Lyrica 150 mg Oral 3 times per day [Active]; Savella 50 mg oral tab 1 tab 2 times per bb day [Active]; trazodone 50 mg Oral tab 1 tab daily [Active]; tramadol 50 mg Oral tab 1 tab every 8 hours [Active]; omeprazole 20 mg Oral cpDR 1 cap once daily [Active]; Calcium+D oral 600 mg oral daily [Active]; docusate sodium 100 mg Oral cap 1 cap 2 times per day [Active]; ferrous sulfate 325 mg (65 mg iron) Oral TbEC daily [Active]; multivitamin oral oral [Active]; CoQ10 [Active]; Metamucil Smooth Texture Oral [Active]; Magnesium Oxide Oral [Active]; Ocuvite oral oral [Active]; Melatonin Oral [Active]; Excedrin Extra Strength oral oral [Active]; Ibuprofen Oral [Active]; baclofen 10 mg Oral tab 1 tab twice a day [Active]; Kely-D 12 Hour Oral [Active]; Probiotic oral oral [Active]; Preparation H Rectal [Active]; Hydrocortisone Topical [Active]; - PMHx: 03:17 chronic pain; Fibromyalgia; peripheral neuropathy; bronchiectasis; diverticulosis; bb spinal stenosis; adrenal gland tumor; Osteoporosis; GERD; - PSHx: 03:17 cervical spine; colon resection; Hysterectomy; Appendectomy; tumor on adrenal gland; bb - Immunization history: Last tetanus immunization: unknown. - Social history:: Smoking status: unknown. ROS: 03:24 Constitutional: Negative for fever, chills, and weight loss, Eyes: Negative for injury, mh7 pain, redness, and discharge, ENT: Negative for injury, pain, and discharge, Neck: Negative for injury, pain, and swelling, : Negative for injury, bleeding, discharge, and swelling, MS/Extremity: Negative for injury and deformity, Skin: Negative for injury, rash, and discoloration, Neuro: Negative for headache, weakness, numbness, tingling, and seizure, Psych: Negative for depression, anxiety, suicide ideation, homicidal ideation, and hallucinations, Allergy/Immunology: Negative for hives, rash, and allergies, Endocrine: Negative for neck swelling, polydipsia, polyuria, polyphagia, and marked weight changes, Hematologic/Lymphatic: Negative for swollen nodes, abnormal bleeding, and unusual bruising. Exam: 03:24 Head/Face: Normocephalic, atraumatic. Eyes: Pupils equal round and reactive to light, mh7 extra-ocular motions intact. Lids and lashes normal. Conjunctiva and sclera are non-icteric and not injected. Cornea within normal limits. Periorbital areas with no swelling, redness, or edema. ENT: Nares patent. No nasal discharge, no septal abnormalities noted. Tympanic membranes are normal and external auditory canals are clear. Oropharynx with no redness, swelling, or masses, exudates, or evidence of obstruction, uvula midline. Mucous membranes moist. Neck: Trachea midline, no thyromegaly or masses palpated, and no cervical lymphadenopathy. Supple, full range of motion without nuchal rigidity, or vertebral point tenderness. No Meningismus. 03:24 Cardiovascular: Regular rate and rhythm with a normal S1 and S2. No gallops, murmurs, or rubs. Normal PMI, no JVD. No pulse deficits. Respiratory: Lungs have equal breath sounds bilaterally, clear to auscultation and percussion. No rales, rhonchi or wheezes noted. No increased work of breathing, no retractions or nasal flaring. 03:24 Skin: Warm, dry with normal turgor. Normal color with no rashes, no lesions, and no evidence of cellulitis. MS/ Extremity: Pulses equal, no cyanosis. Neurovascular intact. Full, normal range of motion. Neuro: Awake and alert, GCS 15, oriented to person, place, time, and situation. Cranial nerves II-XII grossly intact. Motor strength 5/5 in all extremities. Sensory grossly intact. Cerebellar exam normal. Normal gait. Psych: Awake, alert, with orientation to person, place and time. Behavior, mood, and affect are within normal limits. 03:24 Constitutional: The patient appears in no acute distress, alert, awake, uncomfortable. 03:24 Chest/axilla: Inspection: normal, Palpation: tenderness, that is moderate, of the left lateral posterior chest and left lateral anterior chest, that totally reproduces the patient's complaints, Axilla: are normal, Lymph nodes: lymphadenopathy is not appreciated. 03:24 Abdomen/GI: Inspection: abdomen appears normal, Bowel sounds: normal, in all quadrants, Palpation: moderate abdominal tenderness, in the posterior aspect of left lateral abdomen, anterior aspect of left lateral abdomen, left upper quadrant and left lower quadrant, Rectal exam: the exam is deferred, because of patient request, Indicators: McBurney's point is not tender, Resendez's sign is negative, Rovsing's sign is negative, Obturator sign is negative, Psoas sign is negative, Liver: no appreciated palpable abnormalities, Hernia: not appreciated. 03:24 Back: pain, that is moderate, of the left flank, ROM is painful, with all movement, normal spinal alignment noted, CVA tenderness, that is moderate, is noted on the left, vertebral tenderness, is not appreciated, muscle spasm, is not present, Straight leg raises: of both lower extremities does not illicit pain. Vital Signs: 03:00 BP 175 / 97; Pulse 72; Resp 18 S; Temp 99.2(O); Pulse Ox 100% on R/A; Weight 53.52 kg bb (R); Height 5 ft. 0 in. (152.40 cm) (R); Pain 8/10; 04:30 BP 149 / 90; Pulse 77; Resp 16; Pulse Ox 98% on R/A; sg 05:32 BP 152 / 90; Pulse 72; Resp 18; Pulse Ox 98% on R/A; mg2 03:00 Body Mass Index 23.05 (53.52 kg, 152.40 cm) bb [place] Coma Score: 03:02 Eye Response: spontaneous(4). Verbal Response: oriented(5). Motor Response: obeys bb commands(6). Total: 15. 04:30 Eye Response: spontaneous(4). Verbal Response: oriented(5). Motor Response: obeys sg commands(6). Total: 15. Trauma Score (Adult): 03:02 Eye Response: spontaneous(1); Verbal Response: oriented(1); Motor Response: obeys bb commands(2); Systolic BP: > 89 mm Hg(4); Respiratory Rate: 10 to 29 per min(4); [place] Score: 15; Trauma Score: 12 04:30 Eye Response: spontaneous(1); Verbal Response: oriented(1); Motor Response: obeys sg commands(2); Systolic BP: > 89 mm Hg(4); Respiratory Rate: 10 to 29 per min(4); [place] Score: 15; Trauma Score: 12 MDM: 03:15 Patient medically screened. [facility] 04:56 Differential diagnosis: abrasion, closed head injury, contusion, fracture, multiple 7 trauma. Data reviewed: vital signs, nurses notes, EMS record, lab test result(s), CBC, electrolytes, urinalysis, radiologic studies, CT scan. Data interpreted: Pulse oximetry: on room air is 98 %. Interpretation: normal. Counseling: I had a detailed discussion with the patient and/or guardian regarding: the historical points, exam findings, and any diagnostic results supporting the discharge/admit diagnosis, the presence of at least one elevated blood pressure reading (>120/80) during this emergency department visit, lab results, radiology results, the need for outpatient follow up, to return to the emergency department if symptoms worsen or persist or if there are any questions or concerns that arise at home. Response to treatment: the patient's symptoms have markedly improved after treatment. 01/15 03:06 Order name: Basic Metabolic Panel; Complete Time: 04:12 [facility] 01/15 03:06 Order name: CBC with Diff; Complete Time: 04:12 [facility] 01/15 03:06 Order name: Type And Screen; Complete Time: 04:54 [facility] 01/15 03:06 Order name: Protime (+inr); Complete Time: 04:12 [facility] 01/15 03:06 Order name: Ptt, Activated; Complete Time: 04:12 [facility] 01/15 03:49 Order name: CREATININE WHOLE BLOOD; Complete Time: 04:12 [facility] 01/15 03:22 Order name: Head C Spine Cap W Con [facility] 01/15 07:59 Order name: Diet Regular; Complete Time: 08:00 em 01/15 08:15 Order name: Diet Regular; Complete Time: 08:15 sg 01/15 03:06 Order name: Labs collected and sent; Complete Time: 03:23 [facility] 01/15 03:06 Order name: Urine Dipstick-Ancillary (obtain specimen); Complete Time: 05:32 [facility] Administered Medications: 03:23 Drug: morphine 4 mg Route: IVP; Site: right antecubital; mg2 05:32 Follow up: Response: No adverse reaction; Marked relief of symptoms mg2 03:23 Drug: Zofran (Ondansetron) 4 mg Route: IVP; Site: right antecubital; mg2 05:32 Follow up: Response: No adverse reaction; Marked relief of symptoms mg2 06:17 Drug: morphine 4 mg Route: IVP; Site: right antecubital; mg2 08:03 Follow up: Response: No adverse reaction; Pain is decreased sg Disposition: 01/16/20 04:59 Discharged to Home. Impression: Fall (on)(from) incline, Chest Wall Contusion, Abdominal Wall Contusion. - Condition is Stable. - Discharge Instructions: Contusion, [id number], Chest Contusion, [id number]. - Medication Reconciliation Form, Thank You Letter, Antibiotic Education, Prescription Opioid Use form. - Follow up: Private Physician; When: 1 - 2 days; Reason: Worsening of condition, Recheck today's complaints, Continuance of care, Re-evaluation by your physician. - Problem is new. - Symptoms have improved. Signatures: Dispatcher [employer] [facility] Amarilis Shipley RN RN Leticia Roberto RN RN Delvin Quinteros RN RN [facility] Kye Gonsalez MD MD [facility] Ti Cook RN sg Corrections: (The following items were deleted from the chart) 03:22 03:07 Chest Abdomen Pelvis W Con+CT.RAD.BRZ ordered. EDFL EDMS 03:23 03:16 Head Brain Wo Cont+CT.RAD.BRZ ordered. EDFL EDMS 10:10 04:59 01/16/2020 04:59 Discharged to Home. Impression: Fall (on)(from) incline; Chest iw Wall Contusion; Abdominal Wall Contusion. Condition is Stable. Forms are Medication Reconciliation Form, Thank You Letter, Antibiotic Education, Prescription Opioid Use. Follow up: Private Physician; When: 1 - 2 days; Reason: Worsening of condition, Recheck today's complaints, Continuance of care, Re-evaluation by your physician. Problem is new. Symptoms have improved. mh7
[2020-01-16 10:17] VITALS: TEMP 99.2
[2020-01-16 10:19] VITALS: O2SAT 98
[2020-01-16 10:20] VITALS: BP 152/90
--- NOTE | 2020-01-16 14:01 | RAD REPORT ---
EXAM DESCRIPTION: CT HEAD AND CT CERVICAL SPINE WITHOUT CONTRAST 01/16/2020 CLINICAL HISTORY: TRAUMA COMPARISON: None. TECHNIQUE: Axial [address] imaging of the brain. Axial [address] imaging of the cervical spine. Reformatted coronal and sagittal images obtai li. This examination was performed according to our departmental dose optimization program, which include s automated exposure control, adjustment of the mA and/or kV according to patient size and/or use of iterative reconstruction technique. FINDINGS: CT Head: Normal ventricle size and contour. Extra-axial fluid spaces appear normal. There is no edema, hemorrh age, mass, midline shift. Rosenbaum-white matter differentiation is preserved. There is cerebellar atrophy . Normal vermis. No cerebellar tonsillar ectopia. Normal sellar contents. Intraorbital contents appear normal. Clear paranasal sinuses. Mastoid air cells are clear bilaterally . Intact skull base and calvarium. Unremarkable scalp soft tissues. CT cervical spine: There is no acute cervical spine vertebral body fracture. There is 3 mm degenerative intrasubstance f ixation of the four and C5 and C5 on C6. There is moderate generalized mid cervical facet arthropathy , right greater than left. Intact odontoid process and lateral masses. No fracture within the posteri or elements. There is uncovertebral joint hypertrophy at C3-4. Again seen is severe bilateral foraminal stenosis a t this level. Moderate hypertrophic anterior endplate osteophytes noted at C6-7. There is evidence of bilateral laminectomies at C7 and T1. There is transpedicular fusion at the cervicothoracic junction from C7 to T2. Hardware appears intact. No prevertebral edema. Craniocervical junction is intact. The parapharyngeal soft tissues and mucosal spaces appear normal. IMPRESSION: HEAD/CERVICAL SPINE: 1. Unremarkable CT brain. 2. Diffuse cervical spondylosis as detailed above. No acute fracture or traumatic subluxation. CT CHEST, ABDOMEN, PELVIS WITH CONTRAST CLINICAL HISTORY: Trauma. COMPARISON: None. TECHNIQUE: Axial CT imaging of the chest, abdomen and pelvis performed with intravenous contrast. Re formatted coronal and sagittal images obtained. This exam was performed according to our departmental dose-optimization program which includes automa vaughn exposure control, adjustment of the mA and/or kV according to patient size and/or use of iterativ e reconstruction technique FINDINGS: CHEST HEART/VESSELS: Heart is normal in size. No pericardial fluid. Intact normal caliber thoracic aorta w ithout dissection, laceration, or aneurysm. Normal branch pattern of the arch vessels. MEDIASTINUM AND KATHERYN: No mediastinal hemorrhage emphysema. No filling defect within the central airw ays. Normal esophagus. No mediastinal or hilar lymphadenopathy. LUNGS/PLEURA: Mild scattered atelectasis. There is no contusion, laceration, pneumothorax or pleural fluid. There is right middle lobe and lingula atelectasis with bronchiectasis. CHEST WALL/SOFT TISSUES: Sternum is intact. No fracture within the thoracic spine. Remaining bony th orax appears intact. The right and left clavicle, scapula appear normal. There are a few low-density nodules within the thyroid. The larger in the left lobe is 8 mm. ABDOMEN: Normal liver size and contour. Mild fatty liver infiltration. No liver mass or biliary dilatation. Ga llbladder appears normal. Normal spleen. Unremarkable pancreas. Normal adrenal glands. There are a few bilateral simple appearing renal cysts. The largest is in the posterior left kidney, 2.6 cm. 4 mm right renal stone. There is mild dilatation of the right renal pelvis with no urinary tr act stone or mass. Mild aortic atherosclerosis. No aneurysm. Normal caliber inferior vena cava. No adenopathy. Mesenteri c vessels appear normal. Unremarkable stomach. The small bowel loops appear normal. Appendix is not definitely seen. Unremarka ble colon. There is no ascites or free air. No intraperitoneal hemorrhage. PELVIS: Unremarkable bladder. Uterus is surgically absent. No pelvic free fluid. There is no lumbar fracture. There is a mild L4-5 diffuse disc bulge. Mild lumbar facet arthropathy. Intact bony pelvis. Normal h ips. Sclerotic bone island within the sacrum and anterior right pubic bone noted. IMPRESSION: CHEST/ABDOMEN/PELVIS: 1. No acute traumatic cardiopulmonary abnormality. Right middle lobe and lingula atelectasis with bro nchiectasis noted. 2. No solid organ or bowel injury within the abdomen or pelvis. 3. Mild fatty liver infiltration. 4. Bilateral renal cysts. Mild fullness of the right renal pelvis with no obstructing etiology. 5. Status post hysterectomy. Electronically signed by: Sofía Sandra DO 01/16/2020 4:40 AM CDT Due to temporary technical issues with the PACS/Fluency reporting system, reports are being signed by the in house radiologist without review as a courtesy to ensure prompt reporting. The interpreting r adiologist is fully responsible for the content of the report.
== END 2020-01-16 10:10 | disposition home or self-care (01) ==
LOC: ER 02:58
DX: S20.212A Contusion of left front wall of thorax, initial encounter (principal); S30.1XXA Contusion of abdominal wall, initial encounter; W17.89XA Other fall from one level to another, initial encounter; Y93.39 Activity, other involving climbing, rappelling and jumping off; Y92.9 Unspecified place or not applicable; K21.9 Gastro-esophageal reflux disease without esophagitis; M79.7 Fibromyalgia
CPT/HCPCS: 85025; 80048; 36415; 86900; 86850; 85610; 82565; 86901; 85730; 70450; 72125; 71260; 74177; 96375; 96374; 99284; Q9967; J2405; G0390

== ENCOUNTER 2021-12-27 09:57 | Day surgery (SDC) | payer OTHER ==
[2021-12-27] MEDS ORDERED: Zoledronic Acid/Mannitol/Water 5 MG/100 ML INFUS.BOT IV ONE (10:15)
[2021-12-27 10:53] VITALS: BP 119/69; TEMP 97.3; O2SAT 100; BMI 23.2
== END 2021-12-27 10:50 | disposition home or self-care (01) ==
LOC: DS 09:57
PROVIDERS: ATTEND Internal Medicine
DX: M81.0 Age-related osteoporosis without current pathological fracture (principal); R13.10 Dysphagia, unspecified; E86.0 Dehydration
CPT/HCPCS: 96365; J3489

== ENCOUNTER 2023-08-18 15:47 | Observation (INO) | payer OTHER ==
[2023-08-18 17:22] VITALS: BMI 22.2
[2023-08-18] MEDS ORDERED: LOPERAMIDE HCL 2 MG CAPSULE PO PRN (17:28)
[2023-08-18] MEDS ORDERED: ONDANSETRON 4 MG (ODT) TAB PO PRN (17:30)
[2023-08-18] MEDS ORDERED: POLYETHYL GLY 3350 17 GM/DOSE PO PRN (17:31)
[2023-08-18 17:54] LABS: Absolute Eosinophils 0.1 K/uL (0-0.5); Absolute Lymphocytes (CBC) 1.3 K/uL (0.7-4.9); Absolute Monocytes 0.5 K/uL (0.1-1.3); Absolute Neutrophil 4.6 K/uL (1.8-8.0); Basophils % 0.7 % (0-1.3); Eosinophils % 1.4 % (0-4.4); Hematocrit 39.3 % (36.0-45.0); Hemoglobin 12.8 g/dL (12.0-15.0); Lymphocytes % 19.7 % (15.3-44.8); MCH 27.9 pg (27.0-35.0); MCHC 32.7 g/dL (32.0-36.0); MCV 85.4 fL (80-100); MPV 9.6 fL (7.6-11.3); Neutrophils % 71.2 % (41.7-73.7); Platelets 167 thou/uL (152-406); Red Cell Distribution Width 14.4 % (12.1-15.2)
[2023-08-18] MEDS: ACETAMINOPHEN 325 MG TABLET PO PRN (17:54)
[2023-08-18] MEDS: ENOXAPARIN 40 MG/0.4 ML SQ SCH (17:55)
[2023-08-18] MEDS ORDERED: NACHLORIDE 0.45% 1,000 ML IV SCH (18:00)
[2023-08-18 18:37] LABS: INFLUENZA A NAA NEGATIVE (NEGATIVE); SARS-COV-2 RT PCR NEGATIVE (NEGATIVE)
[2023-08-18 18:43] LABS: Albumin 3.6 g/dL (3.4-5.0); Albumin/Globulin Ratio 0.9 (1.1-1.8); Bilirubin Direct 0.1 mg/dL (0-0.2); Bilirubin Indirect, Calculated 0.3 mg/dL (0.2-0.8); Bilirubin Total 0.4 mg/dL (0.2-1.0); Globulin 3.8 g/dL (2.3-3.5); Magnesium 2.3 mg/dL (1.6-2.4); Phosphorus 2.7 mg/dL (2.5-4.9); Protein, Total 7.4 g/dL (6.4-8.2); Thyroid Stimulating Hormone 1.67 uIU/mL (0.358-3.740)
[2023-08-18 19:21] LABS: Sqamous Epithelial <5 /HPF (None Seen); Urine Bacteria None Seen /HPF (<20); Urine Culture Reflex Order NOT NEEDED; Urine Micro Reflex YN NO BILL MICROSCOPIC; Urine RBC <5 /HPF (None Seen); Urine WBC None Seen /HPF (<5); Urine Yeast (Budding) Trace /HPF (None Seen)
[2023-08-18 20:49] LABS: PT Prothrombin Time 11.5 SECONDS (9.5-12.5)
[2023-08-18] MEDS: DIPHENHYDRAMINE 25 MG TAB/CAP PO SCH (21:00)
[2023-08-18] MEDS ORDERED: TRAMADOL HCL 50 MG TAB PO PRN (21:10)
[2023-08-18] MEDS: NACHLORIDE 0.45% 1,000 ML IV SCH (21:49)
[2023-08-18] MEDS: TRAZODONE 50 MG TABLET PO SCH (21:51)
[2023-08-19 02:47] VITALS: O2SAT 97
[2023-08-19 05:34] LABS: Absolute Eosinophils 0.1 K/uL (0-0.5); Absolute Lymphocytes (CBC) 1.2 K/uL (0.7-4.9); Absolute Monocytes 0.4 K/uL (0.1-1.3); Absolute Neutrophil 2.6 K/uL (1.8-8.0); Basophils % 0.2 % (0-1.3); Eosinophils % 2.3 % (0-4.4); Hematocrit 36.1 % (36.0-45.0); Hemoglobin 12.1 g/dL (12.0-15.0); Lymphocytes % 26.9 % (15.3-44.8); MCH 28.6 pg (27.0-35.0); MCHC 33.4 g/dL (32.0-36.0); MCV 85.6 fL (80-100); MPV 9.8 fL (7.6-11.3); Monocytes % 9.1 % (3.3-12.3); Neutrophils % 61.5 % (41.7-73.7); Platelets 153 thou/uL (152-406); RBC Red Blood Cell Count 4.22 M/uL (3.86-4.86); Red Cell Distribution Width 14.3 % (12.1-15.2)
[2023-08-19 05:44] LABS: Anion Gap 8.8 mEq/L (5.0-15.0); Magnesium 2.2 mg/dL (1.6-2.4); Potassium 3.8 mEq/L (3.5-5.1)
[2023-08-19] MEDS: BACLOFEN 10 MG TAB PO SCH (06:15)
[2023-08-19] MEDS: PREGABALIN 150 MG CAP PO SCH (06:17)
--- NOTE | 2023-08-19 07:28 | RAD REPORT ---
EXAM DESCRIPTION: Sofia Weaver And Anni (2 Views)08/18/2023 11:52 pm CLINICAL HISTORY: Shortness of breath COMPARISON: 2021 FINDINGS: The lungs are hyperaerated. The The lungs appear clear of acute infiltrate. The heart is mildly enlarged IMPRESSION: No acute abnormalities displayed
--- NOTE | 2023-08-19 07:41 | RAD REPORT ---
EXAM DESCRIPTION: CT - Abdomen Pelvis W Contrast - 08/19/2023 1:28 am CLINICAL HISTORY: Abdominal pain COMPARISON: none. TECHNIQUE: Computed axial tomography of the abdomen pelvis was obtained. 100 cc Isovue-300 was admin istered intravenously. Oral contrast was not requested which limits evaluation of bowel and appendix All CT scans are performed using dose optimization technique as appropriate and may include automated exposure control or mA/KV adjustment according to patient size. FINDINGS: The liver, spleen, pancreas, and adrenals unremarkable. Renal cysts. Largest left kidney 2.7 centimeters Appendix not visualized. No the stranding adjacent to the right colon. Hysterectomy. Pain no adnexal mass There is no evidence of diverticulitis. Several small sclerotic foci within the right pubic bone, sacrum and lumbar vertebra IMPRESSION: Several small bony sclerotic foci are nonspecific. These may be benign or indicate blast ic metastases. A bone scan may be helpful for further evaluation
--- NOTE | 2023-08-19 08:59 | RAD REPORT ---
EXAM DESCRIPTION: RAD - Hip Right 2 View - 08/19/2023 8:39 am CLINICAL HISTORY: Right hip pain FINDINGS: No fracture or dislocation is seen. Mild osteoarthritis involves the right hip consisting joint space narrowing and subchondral sclerosis
[2023-08-19] MEDS: MILNACIPRAN HCL 50 MG PO SCH (09:00)
[2023-08-19] MEDS: POTASSIUM CL SA 10 MEQ TAB PO ONE (10:35)
--- NOTE | 2023-08-19 12:05 | RAD REPORT ---
EXAM DESCRIPTION: MRI - Lumbar Spine Wo Con - 08/19/2023 10:18 am COMPARISON: None TECHNIQUE: Sagittal T1, T2 and STIR weighted sequences were obtained. Axial T1 and T2 sequences were obtained through the lumbar disc levels. FINDINGS: Mild spondylosis L1-2. Mild posterior subluxation L1 on L2 No significant abnormality L2-3 Disc bulge, ligamentum flavum facet hypertrophy L3-4. Thecal sac 5 millimeters. Mild narrowing of the neural foramina bilaterally. Mild anterior subluxation of L3 on L4 Disc bulge, ligamentum flavum and facet hypertrophy L4-5. Thecal sac 5 millimeters. Mild narrowing ne ural foramina bilaterally. Slight anterior subluxation L4 on L5 L5-S1 unremarkable A 7 millimeter sclerosis S2 segment of the sacrum. Tiny sclerosis L5 vertebral body. 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 These probably are benign but can be seen with blastic metastase s.
[2023-08-19] MEDS: dexAMETHasone 4 MG/ML VIAL IV STA (13:57)
[2023-08-19 14:41] VITALS: BP 142/75; TEMP 97.2
--- NOTE | 2023-08-19 19:08 | CON ---
Date of Consultation: 08/19/2023 Reason For Consultation: Abdominal pain. History Of Present Illness: The patient is a 78-year-old female, who was admitted with abdominal brendon n on the right lower quadrant. Pain was associated with constipation. She did have a couple of bowel movements and she feels a little better. She also has back pain. She denies any nausea or vomiting . Constipation is a big problem. She has no diarrhea or blood per rectum. No dysuria, or hematuria . No sore throat, runny nose, cough, headaches, or dizziness. No chest pain. Review of Systems: Otherwise unremarkable. Past Medical History: Significant for dyslipidemia, bronchiectasis, chronic pain syndrome, chronic c onstipation. Past Surgical History: C-spine surgery, colon resection for diverticulitis, total abdominal hysterec temitope, appendectomy, and adrenal gland surgery. Social History: The patient does not smoke or drink. Family History: Noncontributory. Physical Examination: Vital Signs: Stable. She is currently afebrile. General: She is awake, alert, and oriented x3. Head and Neck: No masses. Chest: Clear. Heart: S1, S2. Abdomen: Soft, nondistended, nontender. Positive bowel sounds. Extremities: Neurovascularly intact. Neuro: Nonfocal. Laboratory Data: CT shows sclerotic foci nonspecific present, cannot rule out bony METS. Otherwise, unremarkable. Chest x-ray is negative. Right hip x-ray shows mild osteoarthritis with joint space narrowing and sclerosis. MRI shows L3 and L4 [id number] central spinal stenosis as well as L 4-L5. Assessment: A 78-year-old female with abdominal pain and back pain, most likely related to constipat ion and spinal stenosis. Recommendations: The patient needs to be on a high-fiber diet, stool softeners. The patient was rec ently started on medications for opioid-induced constipation, which she states has helped and Dr. Carroll will manage the back pain. There is no need for any acute surgical intervention. Plan of care dis cussed with the patient and Dr. Pillai. /MODL Voice ID: [id number] Report ID: [id number]
--- NOTE | 2023-08-19 22:19 | P.DS ---
Admission Date: 08/18/23 Discharge Date: 08/19/23 Disposition: ROUTINE DISCHARGE Discharge Condition: [facility] Hospital Course: LUL HAS R ABDOMEN PAIN. SHE SAY SHE IS CONSTIPATED BUT [employer] SAMPLES WORKED. CT SHOWS NO MORE CONSTIPATION. SHE IS STABLE. I GAVE HER DOSE OF STEROID FOR LUMBAR RADICULOPATHY THAT MAY CAUSE SUCH PAIN. SHE IS GIVEN MEDROL FOR HOME. Vital Signs/Physical Exam: Temp Pulse Resp BP Pulse Ox 97.2 F 58 18 142/75 H 96 08/19/23 12:00 08/19/23 12:00 08/19/23 12:00 08/19/23 12:00 08/19/23 12:00 Laboratory Data at Discharge: WBC 4.30 thou/uL (4.3-10.9) 08/19/23 05:02 Hgb 12.1 g/dL (12.0-15.0) 08/19/23 05:02 Hct 36.1 % (36.0-45.0) 08/19/23 05:02 Plt Count 153 thou/uL (152-406) 08/19/23 05:02 PT 11.5 SECONDS (9.5-12.5) 08/18/23 17:43 INR 1.00 08/18/23 17:43 APTT 35.0 SECONDS (24.3-36.9) 08/18/23 17:43 Sodium 141 mEq/L (136-145) 08/19/23 05:02 Potassium 3.8 mEq/L (3.5-5.1) 08/19/23 05:02 BUN 12 mg/dL (7-18) 08/19/23 05:02 Creatinine 0.71 mg/dL (0.55-1.02) 08/19/23 05:02 Glucose 92 mg/dL (74-106) 08/19/23 05:02 Phosphorus 2.7 mg/dL (2.5-4.9) 08/18/23 17:43 Magnesium 2.2 mg/dL (1.6-2.4) 08/19/23 05:02 Total Bilirubin 0.4 mg/dL (0.2-1.0) 08/18/23 17:43 AST 21 U/L (15-37) 08/18/23 17:43 ALT 25 U/L (13-56) 08/18/23 17:43 Alkaline Phosphatase 84 U/L (45-117) 08/18/23 17:43 Home Medications: Calcium Citrate 600 mg PO DAILY 04/25/14 Docusate Sodium [Doc-Q-Lace] 1 tab PO BID 04/25/14 Milnacipran HCl [Savella] 50 mg PO BID 04/25/14 Multivitamin [Multivitamins] 1 each PO DAILY 04/25/14 Omeprazole [Prilosec] 20 mg PO DAILY PRN 04/25/14 Pregabalin [Lyrica] 150 mg PO TID 04/25/14 Tramadol HCl [Ultram] 50 mg PO BID PRN 04/25/14 Trazodone HCl [Desyrel] 100 mg PO BEDTIME 04/25/14 Docosahexanoic AC/Epa [Fish Oil 1,000 MG*] 1 tab PO DAILY 04/25/15 Lutein 20 mg PO DAILY 04/25/15 Magnesium [Magnesium Gluconate] 1 tab PO DAILY 04/25/15 Cyanocobalamin (Vitamin B-12) [Vitamin B-12] 500 mcg PO DAILY 09/25/16 Ibuprofen [Motrin*] 200 mg PO PRN 09/25/16 Lactobacillus Acidophilus [Probiotic] 1 each PO DAILY 09/25/16 Melatonin 10 mg PO BEDTIME 09/25/16 Vitamin B Complex [B Complex] 1 each PO DAILY 09/25/16 Baclofen 10 mg PO BID 01/20/23 Montelukast Sodium 10 mg PO DAILY 01/20/23 Followup: Ernst Pillai MD [ACTIVE - CAN ADMIT] - 1 Week (Call for appointment)
--- NOTE | 2023-08-20 16:47 | EKG ---
Test Date: 2023-08-19 Test Time: 06:00:25 Product Mgr: KRYSTLE MEASUREMENT RESULTS: Intervals: Rate: 64 AR: 206 QRSD: 88 QT: 426 QTc: 439 [place]: P: 76 AR: 206 QRS: 66 T: 51 INTERPRETIVE STATEMENTS: Normal sinus rhythm Cannot rule out Anterior infarct, age undetermined Abnormal ECG No previous ECG available for comparison Electronically Signed On 08-20-23 16:42:21 CDT by Doron Taylor
== END 2023-08-19 14:45 | disposition home or self-care (01) ==
LOC: 2ND 16:11
PROVIDERS: ADMIT Internal Medicine; ATTEND Internal Medicine
DX: K59.00 Constipation, unspecified (principal); E78.5 Hyperlipidemia, unspecified; G89.4 Chronic pain syndrome; J47.9 Bronchiectasis, uncomplicated; M54.9 Dorsalgia, unspecified; M48.00 Spinal stenosis, site unspecified; Z11.52 Encounter for screening for COVID-19
CPT/HCPCS: 93005; 85025 ×2; 80048 ×2; 36415 ×2; 83735 ×2; 84100; 85610; 80076; 85730; 82652; 84443; 81015; 82607; 0240U; 74177; 71046; 73502; 72148; Q9967; J1100; J1650; G0378; G0379